=== PATIENT | male | born 1995 | race Caucasian/White ===

== ENCOUNTER 2021-06-17 11:57 | Inpatient (IN) ==
[2021-06-17] MEDS ORDERED: diphenhydrAMINE 50 MG/ML VIAL IV STA (12:08)
[2021-06-17] MEDS ORDERED: ACETAMINOPHEN 1,000 MG/100 ML VIAL IV STA (12:08)
[2021-06-17] MEDS ORDERED: SODIUM CHLORIDE 0.9% 1000ML 2,000 ML IV ONE (12:08)
[2021-06-17 12:37] LABS: Eosinophils # (auto) 0.82 K/uL (0-0.5); Eosinophils % (auto) 10.9 %; Hemoglobin 15.3 g/dL (14.0-18.0); Immature Granulocytes # (auto) 0.02 K/uL (0.00-0.02); Immature Granulocytes % (auto) 0.3 %; Lymphocytes # (auto) 0.67 K/uL (1.2-3.4); Lymphocytes % (auto) 8.9 %; Mean Corpuscular Hemoglobin 29.9 pg (25-34); Mean Corpuscular Hgb Conc 35.6 g/dL (32-36); Mean Corpuscular Volume 84.1 fL (80-100); Mean Platelet Volume 12.1 fL (7.4-10.4); Monocytes # (auto) 0.26 K/uL (0.11-0.59); Monocytes % (auto) 3.5 %; Neutrophils # (auto) 5.76 K/uL (1.4-6.5); Neutrophils % (auto) 76.4 %; Platelet Count 137 K/uL (130-400); RDW Coefficient of Variation 13.5 % (11.5-14.5); RDW Standard Deviation 41.2 fL (36.4-46.3); Red Blood Count 5.11 M/uL (4.7-6.1); White Blood Count 7.53 K/uL (4.8-10.8)
[2021-06-17] MEDS ORDERED: ONDANSETRON INJ 2 MG/ML 2 ML VIAL IV STA (12:55)
[2021-06-17 12:56] LABS: INR 1.1 (0.9-1.1); Prothrombin Time 11.2 Seconds (9.0-12.0)
--- NOTE | 2021-06-17 13:00 | XRay Report ---
XR chest 1V portable CLINICAL HISTORY: SEPSIS TECHNIQUE: Single frontal radiograph of the chest was obtained. Comparison: None available at the time of this dictation. FINDINGS: No lines and tubes are seen. The cardiomediastinal silhouette is normal. The lungs are clear. No evid ence of pleural effusion or pneumothorax. IMPRESSION: No acute chest disease. ACT 112: Negative or not required by law. Electronically signed by: Darryl Figueroa M.D. 06/17/2021 12:59 PM
[2021-06-17 13:09] LABS: Troponin I < 0.03 ng/ml (0-0.04)
[2021-06-17 13:21] LABS: Alanine Aminotransferase 33 U/L (7-52); Albumin Globulin Ratio 1.4 (0.9-2); Albumin Level 4.5 gm/dl (3.4-5.0); Alkaline Phosphatase 40 U/L (34-104); Anion Gap 7 (3-11); Aspartate Aminotransferase 18 U/L (13-39); Blood Urea Nitrogen 11 mg/dl (6-23); C Reactive Protein 4.89 mg/dl (0-0.5); Calcium 8.9 mg/dl (8.5-10.1); Carbon Dioxide 28 mmol/L (21-32); Chloride 99 mmol/L (98-107); Creatinine Clr Calc Pharmacy 88.2 ml/min; Est GFR (African American) 81.2 ml/min; Est GFR (Non-African American) 70.1 ml/min; Globulin 3.2 gm/dl (2.5-4.0); Glucose 93 mg/dl (70-99(Fasting)); Magnesium 1.7 mg/dl (1.7-2.4); Potassium 3.4 mmol/L (3.5-5.1); Sodium 134 mmol/L (136-145); Total Protein 7.7 gm/dl (6.0-8.3)
[2021-06-17] MEDS ORDERED: SODIUM CHLORIDE 0.9% 1000ML 1,000 ML IV ONE (13:57)
[2021-06-17 14:07] LABS: Adenovirus PCR Not Detected (NotDetected); Bordetella parapertussis PCR Not Detected (NotDetected); Bordetella pertussis PCR Not Detected (NotDetected); Chlamydia pneumoniae PCR Not Detected (NotDetected); Coronavirus 229E PCR Not Detected (NotDetected); Coronavirus CoV-2 (COVID19)PCR Not Detected (NotDetected); Coronavirus HKU1 PCR Not Detected (NotDetected); Coronavirus NL63 PCR Not Detected (NotDetected); Coronavirus OC43PCR Not Detected (NotDetected); Human Metapneumovirus PCR Not Detected (NotDetected); Influenza A PCR Not Detected (NotDetected); Influenza B PCR Not Detected (NotDetected); Mycoplasma pneumoniae PCR Not Detected (NotDetected); Parainfluenza Virus 1 PCR Not Detected (NotDetected); Parainfluenza Virus 2 PCR Not Detected (NotDetected); Parainfluenza Virus 3 PCR Not Detected (NotDetected); Parainfluenza Virus 4 PCR Not Detected (NotDetected); Respiratory Syncytial VirusPCR Not Detected (NotDetected); Rhinovirus/Enterovirus PCR Not Detected (NotDetected)
--- NOTE | 2021-06-17 14:46 | History & Physical Report ---
Date of Service June 17, 2021 Assessment & Plan (1) Fever: (2) Rash: Plan: Meets SIRS criteria, unknown source DDX: Tick borne illness - anaplasmosis, ehrlichiosis. Juan Jorge Syndrome Patient is 26-year-old male with PMH eosinophilic esophagitis, migraine headache presented to ER referred from dermatology clinic today for rash x 3 days and and fever x 2 days. TMax: 104F Today in ER T: 40.2C, P: 127, R 20, BP 135/78, 98% on room air. No leukocytosis, H&H and platelets WNL. Procalcitonin, lactate WNL. CRP: 4.8, ESR: 13. UA negative. CXR: Negative. Negative respiratory panel In ER given 2 L NSS, IV Benadryl IV Tylenol, IV Zofran Blood cultures pending RPR pending, HIV pending Babesia and ehrlichiosis PCR pending from 06/16/2021 06/16/21. negative mono screen, negative Lyme AB, negative Anaplasma smea 06/17/2021 Outpatient [facility] dermatology and had skin biopsy. Dermatology DDX: ehrlichiosis, mycoplasma pneumonia with Larson-Jorge syndrome, anaplasmosis, versus other etiologies. In clinic he was given doxycycline 200 mg orally. Discontinue Keflex and prednisone that was prescribed 06/15/21 for rash Doxycycline BID IVF Benadryl prn ID consult Will need to follow outpatient skin biopsy results CBC, BMP in am If patient would develop worsening skin rash, necrolysis consider transfer to tertiary center (3) Migraine: Plan: History migraine OBANDO No current OBANDO DVT Prophylaxis SCDs Full Code Follows with Dr Jordon Quach for routine care Pt was seen and care coordinated with Dr Reeves. See addendum History of Present Illness Chief Complaint: Rash, Fever Primary Care Provider: Dr Quach Patient is 26-year-old male with PMH eosinophilic esophagitis, migraine headache presented to ER referred from dermatology clinic today for rash and fever. Patient reports symptoms started on 06/14/2021, initially noticing 2 bumps to right lower calf. He reports progressed to pruritic red rash all over his body. He was seen at [facility] ER on 06/15/2021 for rash and was started on Keflex and prednisone. Patient reports had worsening rash and developed fever of 101F, felt like has facial swelling, generalized headache and reports SOB and returned to ER on 06/16/21. During that ER visit he had no leukocytosis on labs, had negative mono screen, negative Lyme AB, negative Anaplasma smear, and has ehrlichiosis and Babesia PCR is pending. Patient states today 06/17/2021 was seen by dermatology-Dr. Galarza. He was found to have fever there and had biopsy of skin lesion to left arm and abdomen and was referred to ER for further work-up. Dermatology thought possible differential diagnosis of ehrlichiosis, mycoplasma pneumonia with Larson-Jorge syndrome, anaplasmosis, versus etiologies. In clinic he was given doxycycline 200 mg orally. Patient denies recent travel, ill contacts. Reports did go fishing 4 to 5 days ago. Is unaware of any known tick or insect bites. He reports 5 days ago purchased a car from a friend who had a dog, and patient reports he has allergies to dogs. Denies any other new environmental exposures. Denies any new foods. Denies any other medications. Denies recent antibiotic use prior to what was prescribed to him on 06/15/2021. Reports female partner is his . Denies any other sexual partners. Denies history of STDs. Denies N/V/D/C, dizziness, syncope, vision changes, neck pain, CP, orthopnea, palpitations, cough, sore throat, choking, otalgia, rhinorrhea, abdominal pain, paresthesias, weakness, extremity weakness, extremity edema, urinary symptoms. History COVID-19 03/17/2021. Allergies Allergy/AdvReac Type Severity Reaction Status Date / Time azithromycin Allergy Unknown Verified 06/17/21 12:57 Home Medications Medication Instructions Recorded Confirmed Type cephalexin 500 mg capsule 500 mg PO TID 10 Days #30 cap 06/15/21 06/17/21 Rx prednisone 20 mg tablet 40 mg PO DAILY #14 tab 06/15/21 06/17/21 Rx rizatriptan 10 mg disintegrating 10 mg PO UD PRN 06/17/21 06/17/21 History tablet Past Med/Surg History Medical History (Updated 06/17/21 @ 18:38 by Katarina Arvizu PA-C) Eosinophilic esophagitis Migraine Rash Surgical History (Updated 06/17/21 @ 18:38 by Katarina Arvizu PA-C) History of tonsillectomy and adenoidectomy Family History (Updated 06/17/21 @ 18:39 by Katarina Arvizu PA-C) Brother Cancer Osteosarcoma Social History Smoking Status: Never smoker Hx Alcohol Use: Yes Hx Substance Use: No Preferred Language: [place] Communication Ability: Effective 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 Beliefs That Will Affect Care: None Current Living Situation: Spouse Feels Safe at Home: Yes Assistive Devices: None Review of Systems Review of Systems: All systems reviewed & are unremarkable except as noted in HPI & below Physical Exam Physical Exam: General: appears uncomfortable, overweight Head: normocephalic, atraumatic Eyes: PERRL, EOM's intact, conjunctiva slightly injected, no discharge, anicteric ENT: external ears erythematous, swollen, normal external nose, mucous membranes moist, +lesions on palate and inferior aspect of tongue Neck: supple, trachea midline, non-tender, +cervical lymphadenopathy Lungs: clear, no respiratory distress, no wheezing/rhonchi/rales CV: tachycardia, rate 108, regular rhythm, no murmur, no pretibial edema Abd: normal BS, soft, non-tender Ext: no cyanosis, no calf tenderness Neuro: A&O x 3, no focal deficits noted, normal affect Skin: warm, dry, + erythematous papules, plaques to face neck, back, chest, abdomen, bilateral upper and lower extremities, genitals. macules noted to bilat eral palms Results & Data Results & Data ([facility]) Vital Signs (Past 12 Hours) Vital Signs Temp Pulse Resp BP Pulse Ox 06/17/21 14:30 101 H 11 L 113/57 L 97 06/17/21 14:00 99 H 20 119/57 L 96 06/17/21 13:30 102 H 20 125/66 96 06/17/21 13:00 111 H 20 97 06/17/21 12:38 20 98 06/17/21 12:30 113 H 18 06/17/21 12:21 127 H 20 98 06/17/21 12:05 40.2 C H 127 H 20 135/78 98 Laboratory Results Short CBC 06/17/21 Range/Units 12:25 WBC 7.53 (4.8-10.8) K/uL Hgb 15.3 (14.0-18.0) g/dL Hct 43.0 (42-52) % Plt Count 137 (130-400) K/uL BMP 06/17/21 12:25 Sodium 134 L Potassium 3.4 L Chloride 99 Carbon Dioxide 28 BUN 11 Creatinine 1.38 D Glucose 93 Calcium 8.9 Cardiac Enzymes 06/17/21 Range/Units 12:25 Troponin I < 0.03 (0-0.04) ng/ml Liver Function 06/17/21 Range/Units 12:25 Total Bilirubin 1.0 (0.2-1.0) mg/dl AST 18 (13-39) U/L ALT 33 (7-52) U/L Alkaline Phosphatase 40 (34-104) U/L Albumin 4.5 (3.4-5.0) gm/dl Urine 06/17/21 Range/Units Unknown Urine Color Yellow Urine Appearance Clear (Clear) Urine pH 6.0 (4.5-7.5) Ur Specific [place] 1.013 (1.000-1.030) Urine Protein Negative (Negative) Urine Glucose (UA) Negative (Negative) Diagnostic Findings Chest X-Ray 06/17/21 12:08 XR chest 1V portable CLINICAL HISTORY: SEPSIS TECHNIQUE: Single frontal radiograph of the chest was obtained. Comparison: None available at the time of this dictation. FINDINGS: No lines and tubes are seen. The cardiomediastinal silhouette is normal. The lungs are clear. No evidence of pleural effusion or pneumothorax. IMPRESSION: No acute chest disease. ACT 112: Negative or not required by law. Electronically signed by: Darryl Figueroa M.D. 06/17/2021 12:59 PM Supervising Physician Co-Signing Physician Notes Patient was seen and evaluted independently. Chart was reviewed. Case discussed with REJI. Agree with assessment and plan as above
--- NOTE | 2021-06-17 15:18 | Emergency Department Note ---
History of Present Illness General Chief complaint: Referred by Doctor Stated complaint: RASH GETTING WORSE, DERMATOLOGY CALLED Time Seen by Provider: 06/17/21 12:08 History of Present Illness Provider complaint: Fever and rash Onset (ago): day(s) 3 Location: back, abdomen, upper extremity and lower extremity Radiation: non-radiation Maximum Pain Intensity: 10 Associated symptoms: + fever/chills, + headaches, + nausea/vomiting (nausea no vomitting) and + rash; no confusion, no cough, no diaphoresis, no seizure or no shortness of breath 26-year-old male presents emergency department for rash and fever. Patient came asking dermatology. Patient reports rash has been present for last 3 days. This is the third visit to the emergency department last 3 days. Reports rash gets better with Benadryl but is still spreading and itching. Patient is now reporting headache and nausea. No vomiting. Home Medications Medication Instructions Recorded Confirmed Type cephalexin 500 mg capsule 500 mg PO TID 10 Days #30 cap 06/15/21 06/17/21 Rx prednisone 20 mg tablet 40 mg PO DAILY #14 tab 06/15/21 06/17/21 Rx rizatriptan 10 mg disintegrating 10 mg PO UD PRN 06/17/21 06/17/21 History tablet Allergies Allergy/AdvReac Type Severity Reaction Status Date / Time azithromycin Allergy Unknown Verified 06/17/21 12:57 Past Med/Surg History Medical History Eosinophilic esophagitis Migraine No pertinent family history No pertinent past medical history Rash Surgical History No pertinent past surgical history Social History Smoking Status: Never smoker Preferred Language: Tanzanian Feels Safe at Home: Yes Review of Systems A total of 10 systems reviewed and were otherwise negative Physical Exam Vital Signs Vital Signs - 24 hr 06/17/21 12:05 06/17/21 12:21 06/17/21 12:30 Temperature 40.2 C H Temperature Source Temporal Artery Scan Pulse Rate 127 H 127 H 113 H Pulse Rate from SpO2 Sensor Pulse Rhythm Regular Respiratory Rate 20 20 18 Respiratory Effort / Characteristics Non-Labored Spontaneous Respiratory Depth Normal Respiratory Pattern Regular Blood Pressure 135/78 Blood Pressure Mean 97 Pulse Oximetry 98 98 Oxygen Delivery Method Room Air Room Air Sepsis Recent Fever Within 48 Hours Yes Sepsis New/Unexplained Change in Mental Status No Sepsis Action Taken by Nursing Physician Notified 06/17/21 12:38 06/17/21 13:00 06/17/21 13:30 Temperature Temperature Source Pulse Rate 111 H 102 H Pulse Rate from SpO2 Sensor 112 H 103 H Pulse Rhythm Respiratory Rate 20 20 20 Respiratory Effort / Characteristics Non-Labored Spontaneous Respiratory Depth Respiratory Pattern Blood Pressure 125/66 Blood Pressure Mean 85 Pulse Oximetry 98 97 96 Oxygen Delivery Method Room Air Sepsis Recent Fever Within 48 Hours Sepsis New/Unexplained Change in Mental Status Sepsis Action Taken by Nursing 06/17/21 14:00 06/17/21 14:30 06/17/21 15:00 Temperature Temperature Source Pulse Rate 99 H 101 H 99 H Pulse Rate from SpO2 Sensor 99 H 101 H 99 H Pulse Rhythm Respiratory Rate 20 11 L 18 Respiratory Effort / Characteristics Respiratory Depth Respiratory Pattern Blood Pressure 119/57 L 113/57 L 136/60 Blood Pressure Mean 77 75 85 Pulse Oximetry 96 97 96 Oxygen Delivery Method Sepsis Recent Fever Within 48 Hours Sepsis New/Unexplained Change in Mental Status Sepsis Action Taken by Nursing Physical Exam GENERAL: He is oriented to person, place, and time. He appears well-developed and well-nourished. He does not appear distressed. HENT: Exam performed. - Head: Normocephalic and atraumatic. Face covered in calamine lotion. - Right Ear: External ear normal. No mastoid tenderness. - Left Ear: External ear normal. No mastoid tenderness. - Mouth/Throat: The oropharynx is clear and moist. No trismus in the jaw. No dental abscesses or uvula swelling. No oropharyngeal exudate or tonsillar abscesses. EYES: Conjunctivae and EOM are normal. Pupils are equal, round, and reactive to light. Right eye exhibits no discharge. Left eye exhibits no discharge. No scleral icterus. NECK: Normal range of motion. Neck supple. No JVD present. No spinous process tenderness present. No carotid bruit present. No rigidity. No tracheal deviation and normal range of motion present. No Brudzinski's sign and no Kernig's sign noted. CV: Tachycardic rate, regular rhythm, normal heart sounds and intact distal pulses. There is no peripheral edema. Palpable radial pulses bue. PULM/CHEST: Effort normal and breath sounds normal. No respiratory distress. No stridor. He has no wheezes. He has no rales. - Chest Wall: He exhibits no tenderness. ABD: The abdomen is soft. Bowel sounds are normal. He has no distension. No mass is present. There is no tenderness. There is no rebound, no guarding, no Shaikh's sign and no tenderness at McBurney's point. Rovsig negative. MUSC/SKEL: Normal range of motion. There is no peripheral edema, tenderness or deformity. LYMPH: No cervical adenopathy. NEURO: He is alert and oriented to person, place, and time. He has normal strength. No cranial nerve deficit or sensory deficit. Coordination and gait normal. GCS eye subscore is 4. GCS verbal subscore is 5. GCS motor subscore is 6. Cerebellar tests wnl. SKIN: Macular rash over the patient's bilateral upper extremities, lower extremities, trunk, back, and face. No rash on the palms or soles. Rash is no over his genitalia also. No intraoral lesions. No vesicular lesions. Mild surrounding erythema. No discharge or purulence. PSYCH: He has a normal mood and affect. Behavior is normal. Judgment and thought content normal. Course Course 1208: The patient was evaluated in room B4. A complete history and physical exam was performed Cardiac monitoring: An order was placed for continuous cardiac monitoring. The monitor shows a rate of 130 with sinus tachycardia rhythm Administered Medications Discontinued Medications Diphenhydramine HCl (Diphenhydramine 50 Mg/Ml Vial) 25 mg IV NOW STA Stop: 06/17/21 12:09 Last Admin: 06/17/21 12:30 Dose: 25 mg Documented by: [id number] Sodium Chloride (Nss 1000ml) 2,000 mls @ 999 mls/hr IV .Q2H1M ONE Stop: 06/17/21 14:08 Last Infusion: 06/17/21 14:12 Dose: 0 mls/hr Documented by: [id number] Admin: 06/17/21 12:29 Dose: 999 mls/hr Documented by: [id number] Acetaminophen (Ofirmev) 1,000 mg in 100 mls @ 400 mls/hr IV NOW STA Stop: 06/17/21 12:22 Last Infusion: 06/17/21 12:51 Dose: 0 mls/hr Documented by: [id number] Admin: 06/17/21 12:30 Dose: 400 mls/hr Documented by: [id number] Sodium Chloride (Nss 1000ml) 1,000 mls @ 999 mls/hr IV .Q1H1M ONE Stop: 06/17/21 14:57 Last Admin: 06/17/21 14:12 Dose: 999 mls/hr Documented by: [id number] Ondansetron HCl (Ondansetron Inj 2 Mg/Ml 2 Ml Vial) 4 mg IV NOW STA Stop: 06/17/21 12:56 Last Admin: 06/17/21 13:05 Dose: 4 mg Documented by: [id number] Medical Decision Making Laboratory Data Result diagrams: 06/17/21 12:25 06/17/21 12:25 Lab Results 06/17/21 06/17/21 06/17/21 Range/Units 12:25 12:25 12:25 WBC 7.53 (4.8-10.8) K/uL RBC 5.11 (4.7-6.1) M/uL Hgb 15.3 (14.0-18.0) g/dL Hct 43.0 (42-52) % MCV 84.1 (80-100) fL MCH 29.9 (25-34) pg MCHC 35.6 (32-36) g/dL RDW Std Deviation 41.2 (36.4-46.3) fL RDW Coeff of Isidra 13.5 (11.5-14.5) % Plt Count 137 (130-400) K/uL MPV 12.1 H (7.4-10.4) fL Immature Gran % (Auto) 0.3 % Neut % (Auto) 76.4 % Lymph % (Auto) 8.9 % [place] % (Auto) 3.5 % Eos % (Auto) 10.9 % Baso % (Auto) 0.0 % Neut # (Auto) 5.76 (1.4-6.5) K/uL Lymph # (Auto) 0.67 L (1.2-3.4) K/uL [place] # (Auto) 0.26 (0.11-0.59) K/uL Eos # (Auto) 0.82 H (0-0.5) K/uL Baso # (Auto) 0.00 (0-0.2) K/uL Immature Gran # (Auto) 0.02 (0.00-0.02) K/uL ESR 13 (0-15) mm/hr PT 11.2 (9.0-12.0) Seconds INR 1.1 (0.9-1.1) APTT 27.0 (21.0-31.0) Seconds PTT Ratio 1.0 Sodium (136-145) mmol/L Potassium (3.5-5.1) mmol/L Chloride (98-107) mmol/L Carbon Dioxide (21-32) mmol/L Anion Gap (3-11) BUN (6-23) mg/dl Creatinine (0.6-1.4) mg/dl Est Cr Clr Drug Dosing ml/min Est GFR ( Amer) ml/min Est GFR (Non-Af Amer) ml/min BUN/Creatinine Ratio (10-20) Glucose (70-99(Fasting)) mg/dl Lactate (0.4-2.0) mmol/L Calcium (8.5-10.1) mg/dl Magnesium (1.7-2.4) mg/dl Total Bilirubin (0.2-1.0) mg/dl AST (13-39) U/L ALT (7-52) U/L Alkaline Phosphatase (34-104) U/L Troponin I (0-0.04) ng/ml C-Reactive Protein (0-0.5) mg/dl Total Protein (6.0-8.3) gm/dl Albumin (3.4-5.0) gm/dl Globulin (2.5-4.0) gm/dl Albumin/Globulin Ratio (0.9-2) Procalcitonin (0-0.5) ng/ml Adenovirus (PCR) (NotDetected) B. pertussis DNA (PCR) (NotDetected) B.parapertussis DNA PCR (NotDetected) C. pneumoniae DNA (PCR) (NotDetected) Coronavirus OC43 (PCR) (NotDetected) Coronavirus HKU1 (PCR) (NotDetected) Coronavirus 229E (PCR) (NotDetected) SARS-CoV-2 (PCR) (NotDetected) Coronavirus NL63 (PCR) (NotDetected) Human Metapneumovir PCR (NotDetected) Influenza Type A (PCR) (NotDetected) Influenza Type B (PCR) (NotDetected) M. pneumoniae (PCR) (NotDetected) Parainfluenza 1 (PCR) (NotDetected) Parainfluenza 2 (PCR) (NotDetected) Parainfluenza 3 (PCR) (NotDetected) Parainfluenza 4 (PCR) (NotDetected) RSV (PCR) (NotDetected) Entero/Rhino (PCR) (NotDetected) 06/17/21 06/17/21 06/17/21 Range/Units 12:25 12:25 12:25 WBC (4.8-10.8) K/uL RBC (4.7-6.1) M/uL Hgb (14.0-18.0) g/dL Hct (42-52) % MCV (80-100) fL MCH (25-34) pg MCHC (32-36) g/dL RDW Std Deviation (36.4-46.3) fL RDW Coeff of Isidra (11.5-14.5) % Plt Count (130-400) K/uL MPV (7.4-10.4) fL Immature Gran % (Auto) % Neut % (Auto) % Lymph % (Auto) % [place] % (Auto) % Eos % (Auto) % Baso % (Auto) % Neut # (Auto) (1.4-6.5) K/uL Lymph # (Auto) (1.2-3.4) K/uL [place] # (Auto) (0.11-0.59) K/uL Eos # (Auto) (0-0.5) K/uL Baso # (Auto) (0-0.2) K/uL Immature Gran # (Auto) (0.00-0.02) K/uL ESR (0-15) mm/hr PT (9.0-12.0) Seconds INR (0.9-1.1) APTT (21.0-31.0) Seconds PTT Ratio Sodium 134 L (136-145) mmol/L Potassium 3.4 L (3.5-5.1) mmol/L Chloride 99 (98-107) mmol/L Carbon Dioxide 28 (21-32) mmol/L Anion Gap 7 (3-11) BUN 11 (6-23) mg/dl Creatinine 1.38 D (0.6-1.4) mg/dl Est Cr Clr Drug Dosing 88.2 ml/min Est GFR ( Amer) 81.2 ml/min Est GFR (Non-Af Amer) 70.1 ml/min BUN/Creatinine Ratio 8.0 L (10-20) Glucose 93 (70-99(Fasting)) mg/dl Lactate 1.0 (0.4-2.0) mmol/L Calcium 8.9 (8.5-10.1) mg/dl Magnesium 1.7 (1.7-2.4) mg/dl Total Bilirubin 1.0 (0.2-1.0) mg/dl AST 18 (13-39) U/L ALT 33 (7-52) U/L Alkaline Phosphatase 40 (34-104) U/L Troponin I < 0.03 (0-0.04) ng/ml C-Reactive Protein 4.89 H (0-0.5) mg/dl Total Protein 7.7 (6.0-8.3) gm/dl Albumin 4.5 (3.4-5.0) gm/dl Globulin 3.2 (2.5-4.0) gm/dl Albumin/Globulin Ratio 1.4 (0.9-2) Procalcitonin 0.10 (0-0.5) ng/ml Adenovirus (PCR) (NotDetected) B. pertussis DNA (PCR) (NotDetected) B.parapertussis DNA PCR (NotDetected) C. pneumoniae DNA (PCR) (NotDetected) Coronavirus OC43 (PCR) (NotDetected) Coronavirus HKU1 (PCR) (NotDetected) Coronavirus 229E (PCR) (NotDetected) SARS-CoV-2 (PCR) (NotDetected) Coronavirus NL63 (PCR) (NotDetected) Human Metapneumovir PCR (NotDetected) Influenza Type A (PCR) (NotDetected) Influenza Type B (PCR) (NotDetected) M. pneumoniae (PCR) (NotDetected) Parainfluenza 1 (PCR) (NotDetected) Parainfluenza 2 (PCR) (NotDetected) Parainfluenza 3 (PCR) (NotDetected) Parainfluenza 4 (PCR) (NotDetected) RSV (PCR) (NotDetected) Entero/Rhino (PCR) (NotDetected) 06/17/21 Range/Units 13:08 WBC (4.8-10.8) K/uL RBC (4.7-6.1) M/uL Hgb (14.0-18.0) g/dL Hct (42-52) % MCV (80-100) fL MCH (25-34) pg MCHC (32-36) g/dL RDW Std Deviation (36.4-46.3) fL RDW Coeff of Isidra (11.5-14.5) % Plt Count (130-400) K/uL MPV (7.4-10.4) fL Immature Gran % (Auto) % Neut % (Auto) % Lymph % (Auto) % [place] % (Auto) % Eos % (Auto) % Baso % (Auto) % Neut # (Auto) (1.4-6.5) K/uL Lymph # (Auto) (1.2-3.4) K/uL [place] # (Auto) (0.11-0.59) K/uL Eos # (Auto) (0-0.5) K/uL Baso # (Auto) (0-0.2) K/uL Immature Gran # (Auto) (0.00-0.02) K/uL ESR (0-15) mm/hr PT (9.0-12.0) Seconds INR (0.9-1.1) APTT (21.0-31.0) Seconds PTT Ratio Sodium (136-145) mmol/L Potassium (3.5-5.1) mmol/L Chloride (98-107) mmol/L Carbon Dioxide (21-32) mmol/L Anion Gap (3-11) BUN (6-23) mg/dl Creatinine (0.6-1.4) mg/dl Est Cr Clr Drug Dosing ml/min Est GFR ( Amer) ml/min Est GFR (Non-Af Amer) ml/min BUN/Creatinine Ratio (10-20) Glucose (70-99(Fasting)) mg/dl Lactate (0.4-2.0) mmol/L Calcium (8.5-10.1) mg/dl Magnesium (1.7-2.4) mg/dl Total Bilirubin (0.2-1.0) mg/dl AST (13-39) U/L ALT (7-52) U/L Alkaline Phosphatase (34-104) U/L Troponin I (0-0.04) ng/ml C-Reactive Protein (0-0.5) mg/dl Total Protein (6.0-8.3) gm/dl Albumin (3.4-5.0) gm/dl Globulin (2.5-4.0) gm/dl Albumin/Globulin Ratio (0.9-2) Procalcitonin (0-0.5) ng/ml Adenovirus (PCR) Not Detected (NotDetected) B. pertussis DNA (PCR) Not Detected (NotDetected) B.parapertussis DNA PCR Not Detected (NotDetected) C. pneumoniae DNA (PCR) Not Detected (NotDetected) Coronavirus OC43 (PCR) Not Detected (NotDetected) Coronavirus HKU1 (PCR) Not Detected (NotDetected) Coronavirus 229E (PCR) Not Detected (NotDetected) SARS-CoV-2 (PCR) Not Detected (NotDetected) Coronavirus NL63 (PCR) Not Detected (NotDetected) Human Metapneumovir PCR Not Detected (NotDetected) Influenza Type A (PCR) Not Detected (NotDetected) Influenza Type B (PCR) Not Detected (NotDetected) M. pneumoniae (PCR) Not Detected (NotDetected) Parainfluenza 1 (PCR) Not Detected (NotDetected) Parainfluenza 2 (PCR) Not Detected (NotDetected) Parainfluenza 3 (PCR) Not Detected (NotDetected) Parainfluenza 4 (PCR) Not Detected (NotDetected) RSV (PCR) Not Detected (NotDetected) Entero/Rhino (PCR) Not Detected (NotDetected) Imaging Data Radiologist's Impression: Chest X-Ray 06/17/21 12:08 XR chest 1V portable CLINICAL HISTORY: SEPSIS TECHNIQUE: Single frontal radiograph of the chest was obtained. Comparison: None available at the time of this dictation. FINDINGS: No lines and tubes are seen. The cardiomediastinal silhouette is normal. The lungs are clear. No evidence of pleural effusion or pneumothorax. IMPRESSION: No acute chest disease. ACT 112: Negative or not required by law. Electronically signed by: Darryl Figueroa M.D. 06/17/2021 12:59 PM ECG Data Indication: + tachycardia Rate (beats per minute): 110 Rhythm: + sinus tachycardia ECG Intervals/blocks: + Normal QRS, + Normal RI and + Normal QT-c ECG ST segments: + Normal ST segments MDM Narrative EMR reviewed. This is the patient's third visit to the emergency department last 3 days. Patient arrives febrile and tachycardic. Sepsis protocols were initiated. Patient was seen in the emergency department yesterday and had an essentially negative work-up with normal blood work with exception of a mild elevation of the patient's bilirubin level at 1.3 with direct bilirubin of 0.3. Lyme mono and Covid were negative. The patient's rash did seem to improve with Benadryl in the emergency department yesterday. The grandfather at bedside stated that they saw Dr. Mike Livingston dermatology. I did speak and call Dr. Galarza at her office. She states that the patient most likely has alkalosis given his history of recent outdoor fishing and a high tick burden in the area. She states she did treat him with doxycycline 200 mg prior to arrival in the emergency department. Dr. Galarza also stated other things on her differential included mycoplasma pneumonia with very early Larson-Jorge syndrome and or anaplasmosis. She did state that the patient most likely needs to be hospitalized. She states that this potentially early Larson-Jorge is not n eed to be transferred to a burn center at this time based off her assessment in the office Labs today in the emergency department were essentially normal with the exception of an elevated CRP of 4.89. ESR was within normal limits. White blood cell count was within normal limits. Bilirubin level normalized. Lactic acid level normal. Procalcitonin level. X-rays negative. Respiratory bio fire was conducted and the patient was negative for all respiratory illnesses on the bio fire including mycoplasma pneumonia. It is not thought that the patient is having any Larson-Jorge syndrome as he has no triggers for it and there is no sloughing of skin. Patient's vitals improved with antipyretics IV fluids and IV Benadryl. Discussed with [facility] hospitalist [place] who stated to admit to Dr. Reeves. Impression & Plan Rash, SIRS (systemic inflammatory response syndrome) Discharge Plan Visit Data Chief Complaint: Referred by Doctor Stated Complaint: RASH GETTING WORSE, DERMATOLOGY CALLED ED Provider: Jonatan Marino Discharge Problem: Rash, SIRS (systemic inflammatory response syndrome) Patient Disposition: Admitted As Inpatient Forms Stand Alone Forms: [facility] Prescriptions Prescriptions: No Action prednisone 20 mg tablet 40 mg PO DAILY Qty: 14 RF: 0 cephalexin 500 mg capsule 500 mg PO TID 10 Days Qty: 30 RF: 0 rizatriptan 10 mg tablet,disintegrating 10 mg PO UD PRN (Reason: Headache) RF: 0 Referrals Referrals: PCP,NO [Primary Care Provider] -
[2021-06-17] MEDS ORDERED: POLYETHYLENE (MIRALAX) 17 GM PACK PO PRN (17:15)
[2021-06-17] MEDS: diphenhydrAMINE Capsule 25 MG CAP PO PRN (17:29)
[2021-06-17] MEDS: ACETAMINOPHEN 325 MG TAB PO PRN ×2 (17:29→21:42)
[2021-06-17 17:31] LABS: Appearance Urine Clear (Clear); Bilirubin Urine Negative (Negative); Blood Urine Negative (Negative); Color Urine Yellow; Glucose Urine UA Negative (Negative); Ketones Urine Negative (Negative); Leukocyte Esterase Urine Negative (Negative); Nitrite Urine Negative (Negative); Protein Urine Negative (Negative); Specific Gravity Urine 1.013 (1.000-1.030); Urobilinogen Urine Negative (Negative)
[2021-06-17] MEDS ORDERED: SODIUM CHLORIDE 0.9% 1000ML 250 ML IV ONE (18:47)
[2021-06-17] MEDS ORDERED: SODIUM CHLORIDE 0.9% 500 ML IV SCH (19:00)
[2021-06-17] MEDS: IBUPROFEN 600 MG TAB PO PRN (19:04)
[2021-06-17] MEDS ORDERED: SODIUM CHLORIDE 0.9% 1000ML 1,000 ML IV SCH (19:45)
[2021-06-17] MEDS: DOXYCYCLINE HYCLATE 100 MG CAP PO SCH (20:24)
[2021-06-17] MEDS ORDERED: LACTATED RINGER'S 1,000 ML IV ONE (23:28)
[2021-06-18 00:38] LABS: Rapid Plasma Reagin Nonreactive (Nonreactive)
[2021-06-18] MEDS: SODIUM CHLORIDE 0.9% 1000ML 1,000 ML IV SCH ×3 (01:41→18:15)
--- NOTE | 2021-06-18 07:12 | Electrocardiogram Report ---
Test Reason : Blood Pressure : / mmHG Vent. Rate : 114 BPM Atrial Rate : 114 BPM P-R Int : 144 ms QRS Dur : 092 ms QT Int : 296 ms P-R-T Axes : 017 -04 047 degrees QTc Int : 407 ms Sinus tachycardia Otherwise normal ECG No previous ECGs available Confirmed by Donavan Antoine ([id number]) on 06/18/2021 7:12:06 AM Referred By: REFERRED SELF Confirmed By:Donavan Antoine
[2021-06-18 07:47] LABS: Albumin Level 3.5 gm/dl (3.4-5.0); BUN Creatinine Ratio 8.2 (10-20); Bilirubin Direct 0.2 mg/dl (0-0.2); Bilirubin,Total 0.9 mg/dl (0.2-1.0); Calcium 7.8 mg/dl (8.5-10.1); Creatinine Clr Calc Pharmacy 110.6 ml/min; Est GFR (African American) 106.8 ml/min; Est GFR (Non-African American) 92.2 ml/min; Potassium 3.7 mmol/L (3.5-5.1); Total Protein 5.9 gm/dl (6.0-8.3)
[2021-06-18 08:00] LABS: Hematocrit (blood only) 39.2 % (42-52); Hemoglobin 13.9 g/dL (14.0-18.0); Mean Corpuscular Hemoglobin 29.6 pg (25-34); Mean Corpuscular Hgb Conc 35.5 g/dL (32-36); Mean Corpuscular Volume 83.6 fL (80-100); Mean Platelet Volume 12.2 fL (7.4-10.4); Platelet Count 118 K/uL (130-400); Platelet Estimate Decreased (Normal); RDW Coefficient of Variation 13.8 % (11.5-14.5); RDW Standard Deviation 41.8 fL (36.4-46.3); Red Blood Count 4.69 M/uL (4.7-6.1); White Blood Count 6.53 K/uL (4.8-10.8)
[2021-06-18] MEDS: ACETAMINOPHEN 325 MG TAB PO PRN ×3 (08:02→23:17)
[2021-06-18] MEDS: DOXYCYCLINE HYCLATE 100 MG CAP PO SCH ×2 (08:02→21:56)
[2021-06-18] MEDS: diphenhydrAMINE Capsule 25 MG CAP PO PRN ×2 (08:06→21:56)
[2021-06-18] MEDS: IBUPROFEN 600 MG TAB PO PRN ×2 (12:24→21:56)
--- NOTE | 2021-06-18 17:49 | Rheumatology Consultation ---
Rheumatology Consultation DOS June 18, [address] Reeves Attending Physician Dr Reeves Reason for Consultation fever, rash Assessment & Plan (1) SIRS (systemic inflammatory response syndrome): I would really favor some type of inflammatory reactive process and likely to a viral illness especially given 2 sick children at home (son started same day and now daughter today with a rash). I doubt autoimmune diagnosis, vasculitis (vivi given biopsy result). doubt MIS-A given timing to diagnosis of COVID but do wonder if his previous COVID diagnosis predisposed him to this viral/infectious reaction (2) Fever: (3) Interface dermatitis: see above await ID input consider prednisone after ID input will update dermatology - done after evaluation no further rheum follow up needed at this point History of Present Illness Reason for Consultation: Fever, rash Requesting Physician: Dr Reeves Attending Physician: Hector Reeves MD History of Present Illness Brandyn is a 26 y/o male who is here for ongoing fevers and diffuse body rash. he is an over all healthy until this past week. prior to this week, his only health issue was eosinophilic esophagitis that was not bothersome to him. He did have COVID back in March and was sick for several days. he was unvaccinated and has not received any vaccines since then. he states that he woke up tuesday am with a bum on his right calf that he thought might of been a bite from fishing on tuesday. as the day went on he started to feel sick and developed fevers and a rash. he was seen at the [facility] ED and worked up was negative - sent home on keflex and prednisoine. he took it once but made him feel sick and his symptoms worsened. he was seen by dermatology yesterday am - I spoke wto Dr Galarza prior to seeing patient today. she reports he looked toxic - diffuse rash, fevers up to 104.7 and SOB. she did a biopsy and placed him on doxy and sent him back to the ED. he was admitted last night. the rash covers him head to toe. some mouth ulcers as well. no conjunctivitis. no fmaily history of autoimmune diseases. he is still on doxycycline - has had some diarrhea lately and thinks from abx. he is a little better today. has some joint discofort at the right wrist and knees. he is up to date on childhood vaccines except chicken pox because he had that at age 3. no travel. his son did get ill on tuesday and his daughter today. the showed me pictures of her chest - did have a rash on it chest - large erythematous macule. she did take the kids to the doctor and was told viral. Brandyn was covid negative by PCR, most infectious work up is negative. awaiting erichiosis and babeosis PCR studies. awaiting ID consult. the floral decorator let me know that his biopsy just came back as an interface dermatitis - infectious, drug etc. he denies any prescription medications or otc meds other than what he has been prescribed by the ED or derm. Allergies Allergy/AdvReac Type Severity Reaction Status Date / Time azithromycin Allergy Unknown Verified 06/17/21 12:57 Home Medications Medication Instructions Recorded Confirmed Type cephalexin 500 mg capsule 500 mg PO TID 10 Days #30 cap 06/15/21 06/17/21 Rx prednisone 20 mg tablet 40 mg PO DAILY #14 tab 06/15/21 06/17/21 Rx rizatriptan 10 mg disintegrating 10 mg PO UD PRN 06/17/21 06/17/21 History tablet Patient History Medical History (Updated 06/18/21 @ 18:07 by Hubert Lambert MD) Eosinophilic esophagitis Migraine Rash Surgical History (Updated 06/17/21 @ 18:38 by Katarina Arvizu PA-C) History of tonsillectomy and adenoidectomy Family History (Updated 06/17/21 @ 18:39 by Katarina Arvizu PA-C) Brother Cancer Osteosarcoma Social History Smoking Status: Never smoker Hx Alcohol Use: Yes Hx Substance Use: No Preferred Language: Armenian Communication Ability: Effective Laborer [place] Required: No Beliefs That Will Affect Care: None Current Living Situation: Spouse Feels Safe at Home: Yes Assistive Devices: None Review of Systems Constitutional: fevers Ear, Nose, Mouth, Throat: mouth ulcers Respiratory: sob - now resolved Cardiovascular: Additional Comments: no chest pains Gastrointestinal: diarrhea Musculoskeletal: joint pains Integumentary: rash Physical Exam Constitutional: appears comfortable sitting in chair, non toxic appearing, AAOX3 Eyes: no conjunctivitis noted, no sclera erythema ENMT: no ulcers noted on limited exam, moist mucosa Neck: no adenopathy, neck supple Respiratory: normal respiratory effort, lungs clear to auscultation Cardiovascular: RRR, no murmur, no edema Gastrointestinal (Abdomen): normal bowel sounds, soft, nontender, no hepatosplenomegaly Musculoskeletal: no synovitis noted but some tenderness at the right wrist and left knee. no knee effusions Skin: diffuse erythemaous/macular rash all over his body with covalesence. some darker violaceous lesions on the legs with no ulcers. Results & Data ([facility]) Vital Signs (Past 12 Hours) Vital Signs Temp Pulse Resp BP BP Pulse Ox 06/18/21 16:49 37.7 C H 06/18/21 15:02 39.0 C H 108 H 143/86 H 98 06/18/21 12:25 38.2 C H 06/18/21 11:19 37.7 C H 103 H 18 129/69 97 06/18/21 07:55 39.4 C H 103 H 18 128/73 96 Laboratory Results reviewed Diagnostic Findings reviewed Medications Administered reviewed
--- NOTE | 2021-06-18 18:19 | Hospitalist Progress Note ---
Date of Service June 18, 2021 Assessment & Plan (1) Fever: (2) Rash: Plan: Diffuse Rash Fever -likely post viral exanthem -Infectious workup so far unrevealing, still waiting for babesia, anaplasma and ehrlichiosis PCR -Biopsy from yesterday reportedly interphase dermatitis -Appreciate Rheumatology input -Awaiting ID evaluation -TBD whether patient needs to be continued on doxycycline and whether he should be started on steroids SIRS -due to above -improved Likely discharge home tomorrow pending ID input (3) Migraine: Admission and Anticipated Discharge Date Admission Date: June 17, 2021 Subjective Fever defervesced today Reports some wrist soreness Physical Exam Physical Exam: Non toxic, no acute distress Respiratory: breathing comfortably on room air, no accessory muscle use Cardiovascular: regular rate and rhythm Skin: diffuse coalesced macular rash, appears less bright/less red than yesterday, no skin breakdown noted Results & Data Results & Data ([facility]) Vital Signs (Past 12 Hours) Vital Signs Temp Pulse Resp BP BP Pulse Ox 06/18/21 16:49 37.7 C H 06/18/21 15:02 39.0 C H 108 H 143/86 H 98 06/18/21 12:25 38.2 C H 06/18/21 11:19 37.7 C H 103 H 18 129/69 97 06/18/21 07:55 39.4 C H 103 H 18 128/73 96 Laboratory Results Short CBC 06/18/21 Range/Units 06:26 WBC 6.53 (4.8-10.8) K/uL Hgb 13.9 L (14.0-18.0) g/dL Hct 39.2 L (42-52) % Plt Count 118 L (130-400) K/uL BMP 06/18/21 06:26 Sodium 139 Potassium 3.7 Chloride 108 H Carbon Dioxide 24 BUN 9 Creatinine 1.10 Glucose 87 Calcium 7.8 L Liver Function 06/18/21 Range/Units 06:26 Total Bilirubin 0.9 (0.2-1.0) mg/dl Direct Bilirubin 0.2 (0-0.2) mg/dl AST 13 (13-39) U/L ALT 23 (7-52) U/L Alkaline Phosphatase 29 L (34-104) U/L Albumin 3.5 (3.4-5.0) gm/dl Medications Administered Current Inpatient Medications Acetaminophen (Acetaminophen 325 Mg Tab) 650 mg PO Q4H PRN PRN Reason: Pain or Fever Stop: 07/17/21 17:14 Last Admin: 06/18/21 15:16 Dose: 650 mg Documented by: Diphenhydramine HCl (Diphenhydramine Capsule 25 Mg Cap) 50 mg PO TID PRN PRN Reason: Itching Stop: 07/17/21 17:17 Last Admin: 06/18/21 08:06 Dose: 50 mg Documented by: Doxycycline Hyclate (Doxycycline Hyclate 100 Mg Cap) 100 mg PO BID [facility] Stop: 06/19/21 20:59 Last Admin: 06/18/21 08:02 Dose: 100 mg Documented by: Sodium Chloride (Nss 1000ml) 1,000 mls @ 125 mls/hr IV .Q8H [facility] Stop: 07/18/21 01:29 Last Admin: 06/18/21 18:15 Dose: 125 mls/hr Documented by: Ibuprofen (Ibuprofen 600 Mg Tab) 600 mg PO Q6H PRN PRN Reason: fever Stop: 07/17/21 18:46 Last Admin: 06/18/21 12:24 Dose: 600 mg Documented by: Ondansetron HCl (Ondansetron Inj 2 Mg/Ml 2 Ml Vial) 4 mg IV Q6H PRN PRN Reason: Nausea Stop: 07/17/21 17:14 Polyethylene Glycol (Polyethylene (Miralax) 17 Gm Pack) 17 gm PO DAILY PRN PRN Reason: Constipation Stop: 07/17/21 17:14
[2021-06-18] MEDS: ONDANSETRON INJ 2 MG/ML 2 ML VIAL IV PRN (23:11)
[2021-06-18] MEDS: FIRST - Mouthwash BLM 119 ML PO PRN (23:15)
[2021-06-19] MEDS: SODIUM CHLORIDE 0.9% 1000ML 1,000 ML IV SCH ×3 (01:23→17:44)
[2021-06-19] MEDS: ACETAMINOPHEN 325 MG TAB PO PRN (06:30)
[2021-06-19 07:23] LABS: Basophils # (auto) 0.01 K/uL (0-0.2); Basophils % (auto) 0.2 %; Eosinophils # (auto) 1.21 K/uL (0-0.5); Eosinophils % (auto) 19.2 %; Hemoglobin 14.2 g/dL (14.0-18.0); Immature Granulocytes # (auto) 0.01 K/uL (0.00-0.02); Immature Granulocytes % (auto) 0.2 %; Lymphocytes # (auto) 0.65 K/uL (1.2-3.4); Lymphocytes % (auto) 10.3 %; Mean Corpuscular Hemoglobin 29.3 pg (25-34); Mean Corpuscular Hgb Conc 35.5 g/dL (32-36); Mean Corpuscular Volume 82.6 fL (80-100); Mean Platelet Volume 11.8 fL (7.4-10.4); Monocytes % (auto) 3.2 %; Neutrophils # (auto) 4.21 K/uL (1.4-6.5); Neutrophils % (auto) 66.9 %; Platelet Count 122 K/uL (130-400); RDW Coefficient of Variation 13.5 % (11.5-14.5); Red Blood Count 4.84 M/uL (4.7-6.1); White Blood Count 6.29 K/uL (4.8-10.8)
[2021-06-19 07:38] LABS: Albumin Globulin Ratio 1.4 (0.9-2); Albumin Level 3.5 gm/dl (3.4-5.0); BUN Creatinine Ratio 7.6 (10-20); Bilirubin Direct 0.2 mg/dl (0-0.2); Bilirubin,Total 0.9 mg/dl (0.2-1.0); Creatinine Clr Calc Pharmacy 115.7 ml/min; Est GFR (Non-African American) 97.5 ml/min; Globulin 2.5 gm/dl (2.5-4.0); Potassium 3.7 mmol/L (3.5-5.1)
[2021-06-19] MEDS: DOXYCYCLINE HYCLATE 100 MG CAP PO SCH ×2 (09:52→11:12)
[2021-06-19] MEDS: FIRST - Mouthwash BLM 119 ML PO PRN ×2 (09:54→16:50)
[2021-06-19] MEDS: IBUPROFEN 600 MG TAB PO PRN (09:58)
[2021-06-19] MEDS: ACETAMINOPHEN SUSP 325 MG/10.15 ML UDC PO PRN ×2 (11:36→17:43)
[2021-06-19] MEDS: diphenhydrAMINE Capsule 25 MG CAP PO PRN (11:44)
[2021-06-19] MEDS ORDERED: IBUPROFEN 200 MG/10 ML UDC PO PRN (11:51)
[2021-06-19] MEDS ORDERED: DOXYCYCLINE SUSP 25 MG/5 ML 60ML PO ONE (12:00)
--- NOTE | 2021-06-19 17:27 | Hospitalist Progress Note ---
Date of Service June 19, 2021 Assessment & Plan Admission and Anticipated Discharge Date Admission Date: June 17, 2021 Results & Data Results & Data ([facility]) Vital Signs (Past 12 Hours) Vital Signs Temp Pulse Pulse Resp BP BP Pulse Ox 06/19/21 15:44 90 06/19/21 15:22 37.5 C 91 H 20 132/66 95 06/19/21 13:49 38.6 C H 06/19/21 12:44 39.3 C H 06/19/21 11:29 39.3 C H 100 H 20 145/71 H 98 06/19/21 07:44 108 H 06/19/21 06:37 38.7 C H 106 H 22 145/80 H 98 06/19/21 05:27 37.4 C Medications Administered Current Inpatient Medications Acetaminophen (Acetaminophen Susp 325 Mg/10.15 Ml Udc) 650 mg PO Q6H PRN PRN Reason: Pain or Fever (first line) Stop: 07/19/21 11:17 Last Admin: 06/19/21 11:36 Dose: 650 mg Documented by: Diphenhydramine HCl (Diphenhydramine Capsule 25 Mg Cap) 50 mg PO TID PRN PRN Reason: Itching Stop: 07/17/21 17:17 Last Admin: 06/19/21 11:44 Dose: 50 mg Documented by: Doxycycline Monohydrate (Doxycycline Susp 25 Mg/5 Ml 60ml) 100 mg PO BID [facility] Stop: 06/26/21 20:59 Sodium Chloride (Nss 1000ml) 1,000 mls @ 150 mls/hr IV .Q6H40M [facility] Stop: 07/18/21 01:29 Last Admin: 06/19/21 09:51 Dose: 125 mls/hr Documented by: Ibuprofen (Ibuprofen 200 Mg/10 Ml Udc) 400 mg PO Q6H PRN PRN Reason: fever (2nd line) Stop: 07/19/21 11:50 Last Admin: 06/19/21 12:45 Dose: 400 mg Documented by: Multi-Ingredient Mouthwash/Gargle (First - Mouthwash Blm 119 Ml) 5 ml PO QID PRN PRN Reason: painful oral sores Stop: 07/19/21 08:59 Last Admin: 06/19/21 16:50 Dose: 5 ml Documented by: Ondansetron HCl (Ondansetron Inj 2 Mg/Ml 2 Ml Vial) 4 mg IV Q6H PRN PRN Reason: Nausea Stop: 07/17/21 17:14 Last Admin: 06/18/21 23:11 Dose: 4 mg Documented by: Polyethylene Glycol (Polyethylene (Miralax) 17 Gm Pack) 17 gm PO DAILY PRN PRN Reason: Constipation Stop: 07/17/21 17:14
--- NOTE | 2021-06-19 17:43 | Discharge Summary ---
Date of Service June 19, 2021 Admission HPI Per Admitting Provider Patient is 26-year-old male with PMH eosinophilic esophagitis, migraine headache presented to ER referred from dermatology clinic today for rash and fever. Patient reports symptoms started on 06/14/2021, initially noticing 2 bumps to right lower calf. He reports progressed to pruritic red rash all over his body. He was seen at [facility] ER on 06/15/2021 for rash and was started on Keflex and prednisone. Patient reports had worsening rash and developed fever of 101F, felt like has facial swelling, generalized headache and reports SOB and returned to ER on 06/16/21. During that ER visit he had no leukocytosis on labs, had negative mono screen, negative Lyme AB, negative Anaplasma smear, and has ehrlichiosis and Babesia PCR is pending. Patient states today 06/17/2021 was seen by dermatology-Dr. Galarza. He was found to have fever there and had biopsy of skin lesion to left arm and abdomen and was referred to ER for further work-up. Dermatology thought possible differential diagnosis of ehrlichiosis, mycoplasma pneumonia with Larson-Jorge syndrome, anaplasmosis, versus etiologies. In clinic he was given doxycycline 200 mg orally. Patient denies recent travel, ill contacts. Reports did go fishing 4 to 5 days ago. Is unaware of any known tick or insect bites. He reports 5 days ago purchased a car from a friend who had a dog, and patient reports he has allergies to dogs. Denies any other new environmental exposures. Denies any new foods. Denies any other medications. Denies recent antibiotic use prior to what was prescribed to him on 06/15/2021. Reports female partner is his . Denies any other sexual partners. Denies history of STDs. Denies N/V/D/C, dizziness, syncope, vision changes, neck pain, CP, orthopnea, palpitations, cough, sore throat, choking, otalgia, rhinorrhea, abdominal pain, paresthesias, weakness, extremity weakness, extremity edema, urinary symptoms. History COVID-19 03/17/2021. Principal Diagnosis Rash Fever SIRS Interface Dermatitis Discharge Exam Appears weak, listless, diaphoretic Respiratory Breathing comfortably on room air, no wheezing/rhonchi/rales Cardiovascular Tachycardic but regular, no murmurs/rubs/gallops Gastrointestinal (Abdomen) soft Musculoskeletal swelling of right wrist Skin diffuse macular coalescing rash Discharge Data Allergies Allergy/AdvReac Type Severity Reaction Status Date / Time azithromycin Allergy Unknown Verified 06/17/21 12:57 Consultations 06/17/21 14:41 ED Decision to Admit Stat 06/17/21 17:15 Consult Infectious Diseases Routine 06/18/21 15:50 Consult Rheumatology Routine 06/19/21 16:36 Burn CD for patient Stat Hospital Course Mr Brandyn Duffy is a 26 year old man with history of Covid infection March 2021, reported history of up to date on childhood vaccinations, eosinophilic esophagitis not on medications and migraine headache initially pr esented to [facility] ER on 06/15 with rash. He was prescribed keflex and prednisone then discharged home. His rash worsened and spread all over his body. He followed up with Dermatology 06/17 and was sent back to the ER for admission. In the office, he reportedly appeared toxic (febrile) and complained of shortness of breath. Biopsies obtained in office (Dr Galarza). Since being admitted, he was placed on NSS at 150 cc/hr, doxycyline 100mg BID. He was evaluated by Rheumatology 06/18 (Dr Lucia) who reviewed case with Dermatology and biopsy pathology report (interface dermatitis) and felt that his current condition was likely a reactive inflammatory process with his recent viral illness exposure and not an autoimmune illness. He was recommended to continue doxycycline until evaluated by ID. He was seen by ID 06/19 and was again recommended to continue doxycyline and additional labwork was requested. In the interim, patient continues to have ongoing fever/tachycardia and now worsening fatigue/lethargy. Upon further investigation, mother reports he has a history of childhood leukemia and his brother was diagnosed with sarcoma. Family is concerned with his ongoing symptoms and "no clear answers". They have requested he be transferred to a high level of care which is appropriate in this current setting. [facility] was contacted and he was accepted for transfer for multidisciplinary care. He should be evaluated again by ID, Rheumatology and Hematology (hematology not available here at [facility]). Patient needs CT chest/abdomen/pelvis to evaluate for occult malignancy. This was not done here due to pending transfer. At time of discharge, his Anaplasma PCR, Ehrlichia PCR and Chlamydia and GC urine studies are pending Additional labwork and microbiology studies will be at the discretion of the accepting facility. Total Time Total Time Spent Total Time Spent (In Minutes): 60 Discharge Plan Discharge Items Patient Disposition: Transfer Acute Care Hospital Reason For Visit: FEVER Discharge Diagnosis: Fever Rash Interface dermatitis Condition on Discharge: Fair Activity: Resume your previous activity Non-emergency contact: Primary Care Provider Call non-emergency contact if: you have any medication questions Follow-up/Referrals: Jordon Quach, [Outside Practitioners] - (Date & Time 06/24/2021 11:00 AM Provider Imelda Jimenez MD Department Family [facility] ) Diet: Regular Diet Texture: Easy to Chew Addtl Attending Provider Instructions: Current Inpatient Medications Acetaminophen (Acetaminophen Susp 325 Mg/10.15 Ml Udc) 650 mg PO Q6H PRN PRN Reason: Pain or Fever (first line) Stop: 07/19/21 11:17 Last Admin: 06/19/21 11:36 Dose: 650 mg Documented by: Diphenhydramine HCl (Diphenhydramine Capsule 25 Mg Cap) 50 mg PO TID PRN PRN Reason: Itching Stop: 07/17/21 17:17 Last Admin: 06/19/21 11:44 Dose: 50 mg Documented by: Doxycycline Monohydrate (Doxycycline Susp 25 Mg/5 Ml 60ml) 100 mg PO BID [facility] Stop: 06/26/21 20:59 Sodium Chloride (Nss 1000ml) 1,000 mls @ 150 mls/hr IV .Q6H40M [facility] Stop: 07/18/21 01:29 Last Admin: 06/19/21 09:51 Dose: 125 mls/hr Documented by: Ibuprofen (Ibuprofen 200 Mg/10 Ml Udc) 400 mg PO Q6H PRN PRN Reason: fever (2nd line) Stop: 07/19/21 11:50 Last Admin: 06/19/21 12:45 Dose: 400 mg Documented by: Multi-Ingredient Mouthwash/Gargle (First - Mouthwash Blm 119 Ml) 5 ml PO QID PRN PRN Reason: painful oral sores Stop: 07/19/21 08:59 Last Admin: 06/19/21 16:50 Dose: 5 ml Documented by: Ondansetron HCl (Ondansetron Inj 2 Mg/Ml 2 Ml Vial) 4 mg IV Q6H PRN PRN Reason: Nausea Stop: 07/17/21 17:14 Last Admin: 06/18/21 23:11 Dose: 4 mg Documented by: Polyethylene Glycol (Polyethylene (Miralax) 17 Gm Pack) 17 gm PO DAILY PRN PRN Reason: Constipation Stop: 07/17/21 17:14 Pending Studies at Discharge: Yes Studies:: Ehrlichiosis PCR Anaplasmosis PCR Stand-Alone Forms: [facility] Skilled Items Patient informed of condition?: Yes DNR: No Discharge Level of Care: Other Communicable Disease: No Discharge Prognosis: Stable Lines: None and Peripheral IV Urinary Catheter: No Medications and DC Order Prescriptions: Discontinued prednisone 20 mg tablet 40 mg PO DAILY Qty: 14 RF: 0 cephalexin 500 mg capsule 500 mg PO TID 10 Days Qty: 30 RF: 0 rizatriptan 10 mg tablet,disintegrating 10 mg PO UD PRN (Reason: Headache) RF: 0 Discharge Orders: Discharge Order (Routine); Ordered 06/19/21 Ordered By: Hector Reeves Admission Data Admit Date/Time: 06/17/21 14:53 Attending Provider: Hector Reeves Admit Provider: Hector Reeves Primary Care Provider: PCP,NO Other Providers: Hector Reeves ; Albert Santos ; Russ Charles ; James Sun I. ; Rohit Xavier II ; Claire Victor ; Khang Valentin ; Jonas Waite ; Hubert Lambert
[2021-06-19] MEDS: ONDANSETRON INJ 2 MG/ML 2 ML VIAL IV PRN (19:13)
[2021-06-19] MEDS ORDERED: DOXYCYCLINE SUSP 25 MG/5 ML 60ML PO SCH (21:00)
[2021-06-21 12:25] LABS: Chlamydia Trach RNA NOT DETECTED (NOT DETECTED); GC (Neis gonorrhoeae) RNA NOT DETECTED (NOT DETECTED)
== END 2021-06-19 19:30 | disposition short-term general hospital (02) | DRG 607 ==
LOC: ED 11:57 → 2N 14:53

== ENCOUNTER 2025-03-07 01:27 | Observation (INO) ==
[2025-03-07 02:17] LABS: Hematocrit (blood only) 40.8 % (42.0-52.0); Hemoglobin 14.9 g/dL (14.0-18.0); Immature Granulocytes # (auto) 0.02 K/uL (0.01-0.20); Immature Granulocytes % (auto) 0.3 %; Mean Corpuscular Hemoglobin 29.4 pg (25.0-34.0); Mean Corpuscular Volume 80.5 fL (80.0-100.0); Platelet Count 131 K/uL (130-400); RDW Standard Deviation 37.6 fL (36.4-46.3); Red Blood Count 5.07 M/uL (4.70-6.10); White Blood Count 7.99 K/ul (4.8-10.8)
--- NOTE | 2025-03-07 02:25 | Emergency Department Note ---
Impression & Plan Abdominal pain, acute, right upper quadrant, Migraine, Fever admit to the [facility] ED Provider Note NAME: JOSE L CLIFFORD AGE: 30 SEX: Male INFORMANT: Patient ED PROVIDER(S): Fely Polanco DO CHIEF COMPLAINT: Right upper quadrant abdominal pain and fever PLAN: Disposition: admit to the [facility] MEDICAL DECISION MAKING: This is a 30-year-old male patient with a strong family history of gallbladder problems and personal history of gallbladder disease from earlier this year who presents to the emergency department with worsening right upper quadrant abdominal pain over the past 4 days and fever. Patient explains that he noted this right upper quadrant abdominal pain approximately 4 days ago that seem to worsen with eating. He then seemed to lose his appetite and now has had a migraine for the past 2 days. Patient became concerned tonight when he developed a fever and chills. Patient explains that earlier this year he had a similar presentation of right upper quadrant abdominal pain and was told that he had problems with his gallbladder. He was scheduled to follow-up with a surgeon to potentially have the gallbladder removed but never followed through with surgery. He underwent HIDA scan in July 2024 which revealed patent cystic common bile ducts. The gallbladder ejection fraction at that time was elevated at 87%. 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 On evaluation today, the patient has a positive Shaikh sign. He describes significant pain in that area every time he tries to eat anything. He was medicated with IV Zofran, Tylenol and Dilaudid which gave him relief of some of his right upper quadrant abdominal pain but the nausea persisted. He was given a dose of IV Compazine which helped with the nausea and migraine. Right upper quadrant ultrasound was positive for sludge but no other acute findings for cholecystitis. Because the patient presented with a fever, I did add upper respiratory testing for COVID, influenza, and RSV which were all negative. I also ordered a chest x-ray which showed no acute findings. Upon repeat assessment, the patient still had some discomfort in the right upper quadrant of the abdomen. Of asked the patient be evaluated by the [facility] team. Care/management discussed with: circulation manager [facility] Triage Nursing notes: reviewed and agree With them. Vital Signs: reviewed and remarkable for fever Additional History obtained from: family members at the bedside Differential Diagnosis: sepsis, acute cholecystitis, choledocholithiasis, Diagnostics, independently interpreted by me: ECG: normal sinus rhythm at a rate of [address] segment elevation or signs of ischemia. Cardiac Monitoring: normal sinus rhythm at a rate of 88 Imaging studies: right upper quadrant ultrasound:as per [facility] Portable chest x-ray: as per [facility] [place] HPI: 30 year old Male arrives for evaluation of Fever, right upper quadrant abdominal pain and migraine. Patient explains that he noted this right upper quadrant abdominal pain approximately 4 days ago that seem to worsen with eating. He then seemed to lose his appetite and now has had a migraine for the past 2 days. Patient became concerned tonight when he developed a fever and chills. 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 Pupils are equal, round, and reactive to light. Extraocular eye muscles are intact, and sclera are anicteric. Nose - moist nasal mucosa without discharge. Mouth - moist buccal mucosa. Oropharynx is nonerythematous and there is no tonsillar exudate or edema noted. Neck: Supple; no Cervical lymphadenopathy Heart: Regular rate and rhythm. There is a normal S1 and S2 with no murmurs, clicks, or gallops appreciated. Lungs: Clear to auscultation bilaterally with no wheezes, rales, or rhonchi. Abdomen: Soft, moderate pain to palpation in the right upper quadrant, nondistended, with good bowel sounds. There are no palpable pulsatile masses or hepatosplenomegaly. There is no guarding, rigidity, or rebound noted. Extremities: No evidence of cyanosis, clubbing, or edema. There are easily palpable peripheral pulses. Skin: hot and dry with good turgor and no rashes. Emergency department treatment: front desk monitor, IV normal saline bolus, IV Zofran, IV Tylenol, IV Dilaudid, IV Compazine, IV Toradol emergency department course: The patient was evaluated in room A-10. A complete history and physical was performed. A septic protocol was performed. an order was placed for continuous cardiac monitoring. The patient was in a normal sinus rhythm at a rate of 88. Twelve-lead EKG was obtained as described above. Patient was bolused with IV normal saline solution and given a dose of IV Zofran for his nausea. He was given IV Tylenol for his fever and IV Dilaudid for the headache and right upper quadrant abdominal pain. Patient went for ultrasound of the right upper quadrant. Upon returning from radiology, the patient was still quite nauseated and complaining of the persistent migraine. He went on to receive a dose of IV Compazine and IV Toradol. Portable chest x-ray was performed. Nasal swab was performed for influenza, RSV and COVID. These were all unremarkable. Patient was still experiencing right upper quadrant abdominal pain. I discussed the case with the [facility] Hospitalist group. Past Med/Surg History Problem List (Updated 03/07/25 @ 06:03 by Fely Polanco DO) Fever (Acute) Migraine (Acute) Abdominal pain, acute, right upper quadrant (Acute) Intractable right upper quadrant abdominal pain Interface dermatitis Fever SIRS (systemic inflammatory response syndrome) (Acute) Migraine Eosinophilic esophagitis Rash (Acute) Surgical History (Updated 06/17/21 @ 18:38 by Katarina Arvizu PA-C) History of tonsillectomy and adenoidectomy Family History (Updated 06/17/21 @ 18:39 by Katarina Arvizu PA-C) Brother Cancer Osteosarcoma Social History Smoking Status: Never smoker Hx Alcohol Use: Yes Hx Substance Use: No Preferred Language: Wolof Communication Ability: Effective Bi Technical Lead Required: No Beliefs That Will Affect Care: None Current Living Situation: Spouse Feels Safe at Home: Yes Assistive Devices: None Allergies Allergies Allergy/AdvReac Type Severity Reaction Status Date / Time azithromycin Allergy Unknown HAPPENED A Verified 03/07/25 02:21 LONG TIME AGO--CAN'T REMEMBER Home Meds Home Medications Medication Instructions Recorded Confirmed omeprazole 40 mg capsule,delayed 40 mg PO DAILY 03/07/25 03/07/25 release Results & Data (ED) Vital Signs Vital Signs - 24 hr 03/07/25 01:35 03/07/25 01:52 03/07/25 02:00 Temperature 38.1 C H Temperature Source Oral Pulse Rate 96 H 88 Pulse Rate [Apical] Pulse Rate from SpO2 Sensor Pulse Rhythm [Apical] Pulse Strength [Apical] Respiratory Rate 18 Respiratory Effort / Characteristics Non-Labored Spontaneous Respiratory Depth Normal Respiratory Pattern Regular Blood Pressure 134/89 Blood Pressure [Right Arm] Blood Pressure Mean 104 Blood Pressure Mean [Right Arm] Blood Pressure Position Sitting Blood Pressure Position [Right Arm] Pulse Oximetry 97 Oxygen Delivery Method Room Air Room Air Sepsis Recent Fever Within 48 Hours Yes Sepsis New/Unexplained Change in Mental Status N/A Sepsis Action Taken by Nursing No Action Required 03/07/25 02:00 03/07/25 02:30 03/07/25 03:00 Temperature Temperature Source Pulse Rate 78 80 68 Pulse Rate [Apical] Pulse Rate from SpO2 Sensor 80 71 Pulse Rhythm [Apical] Pulse Strength [Apical] Respiratory Rate 14 17 15 Respiratory Effort / Characteristics Respiratory Depth Respiratory Pattern Blood Pressure 138/83 137/82 120/71 Blood Pressure [Right Arm] Blood Pressure Mean 101 100 87 Blood Pressure Mean [Right Arm] Blood Pressure Position Blood Pressure Position [Right Arm] Pulse Oximetry 96 95 Oxygen Delivery Method Sepsis Recent Fever Within 48 Hours Sepsis New/Unexplained Change in Mental Status Sepsis Action Taken by Nursing 03/07/25 03:30 03/07/25 04:18 03/07/25 04:54 Temperature 37.2 C 37.1 C Temperature Source Oral Oral Pulse Rate Pulse Rate [Apical] 52 L Pulse Rate from SpO2 Sensor Pulse Rhythm [Apical] Pulse Strength [Apical] Respiratory Rate 18 Respiratory Effort / Characteristics Respiratory Depth Respiratory Pattern Blood Pressure Blood Pressure [Right Arm] 106/63 Blood Pressure Mean Blood Pressure Mean [Right Arm] 77 Blood Pressure Position Blood Pressure Position [Right Arm] Lying Pulse Oximetry 94 Oxygen Delivery Method Room Air Sepsis Recent Fever Within 48 Hours Sepsis New/Unexplained Change in Mental Status Sepsis Action Taken by Nursing 03/07/25 06:00 Temperature Temperature Source Pulse Rate Pulse Rate [Apical] 54 L Pulse Rate from SpO2 Sensor Pulse Rhythm [Apical] Regular Pulse Strength [Apical] Normal Respiratory Rate 18 Respiratory Effort / Characteristics Non-Labored Accessory Muscle Use Respiratory Depth Normal Respiratory Pattern Regular Blood Pressure Blood Pressure [Right Arm] 111/64 Blood Pressure Mean Blood Pressure Mean [Right Arm] 79 Blood Pressure Position Blood Pressure Position [Right Arm] Pulse Oximetry 96 Oxygen Delivery Method Room Air Sepsis Recent Fever Within 48 Hours Sepsis New/Unexplained Change in Mental Status Sepsis Action Taken by Nursing Laboratory Data 03/07/25 02:00 03/07/25 02:00 Lab Results 12/03/07/25 03/07/25 Range/Units 02:00 02:20 04:06 WBC 7.99 (4.8-10.8) K/ul RBC 5.07 (4.70-6.10) M/uL Hgb 14.9 (14.0-18.0) g/dL Hct 40.8 L (42.0-52.0) % MCV 80.5 (80.0-100.0) fL MCH 29.4 (25.0-34.0) pg MCHC 36.5 H (32.0-36.0) g/dL RDW Std Deviation 37.6 (36.4-46.3) fL RDW Coeff of [place]id[place] 13.2 (11.5-14.5) % Plt Count 131 (130-400) K/uL MPV 12.2 (9.4-12.4) fL Immature Gran % (Auto) 0.3 % Neut % (Auto) 77.6 % Lymph % (Auto) 13.3 % [place] % (Auto) 6.9 % Eos % (Auto) 1.6 % Baso % (Auto) 0.3 % Neut # (Auto) 6.21 (1.40-6.50) K/uL Lymph # (Auto) 1.06 L (1.20-3.40) K/uL [place] # (Auto) 0.55 (0.11-0.59) K/uL Eos # (Auto) 0.13 (0.00-0.50) K/uL Baso # (Auto) 0.02 (0.00-0.20) K/uL Immature Gran # (Auto) 0.02 (0.01-0.20) K/uL Sodium 137 (136-145) mmol/L Potassium 3.7 (3.5-5.1) mmol/L Chloride 103 (98-107) mmol/L Carbon Dioxide 27 (21-32) mmol/L Anion Gap 7 (3-11) BUN 11 (6-23) mg/dl Creatinine 0.98 (0.6-1.4) mg/dl Est Cr Clr Drug Dosing 119.2 ml/min eGFR 106.38 BUN/Creatinine Ratio 11.2 (10-20) Glucose 108 H (70-99(Fasting)) mg/dl Lactate 1.0 (0.4-2.0) mmol/L Calcium 9.5 (8.6-10.3) mg/dl Magnesium 1.9 (1.7-2.4) mg/dl Total Bilirubin 0.7 (0.2-1.0) mg/dl Direct Bilirubin 0.2 (0-0.2) mg/dl AST 16 (13-39) U/L ALT 32 (7-52) U/L Alkaline Phosphatase 40 (34-104) U/L Troponin I High Sens 3.4 (0-20) pg/ml Total Protein 7.4 (6.0-8.3) gm/dl Albumin 4.4 (3.4-5.0) gm/dl Procalcitonin 0.03 (0-0.5) ng/ml Urine Color Urine Appearance (Clear) Urine pH (4.5-7.5) Ur Specific [place] (1.000-1.030) Urine Protein (Negative) Urine Glucose (UA) (Negative) Urine Ketones (Negative) Urine Blood (Negative) Urine Nitrite (Negative) Urine Bilirubin (Negative) Urine Urobilinogen (Negative) Ur Leukocyte Esterase (Negative) Urine Comment SARS-CoV-2 (PCR) NEGATIVE (Negative) Influenza Type A (PCR) Negative (Neg) Influenza Type B (PCR) Negative (Neg) RSV (RT-PCR) Negative (Neg) 03/07/25 Range/Units 04:14 WBC (4.8-10.8) K/ul RBC (4.70-6.10) M/uL Hgb (14.0-18.0) g/dL Hct (42.0-52.0) % MCV (80.0-100.0) fL MCH (25.0-34.0) pg MCHC (32.0-36.0) g/dL RDW Std Deviation (36.4-46.3) fL RDW Coeff of [place]idra (11.5-14.5) % Plt Count (130-400) K/uL MPV (9.4-12.4) fL Immature Gran % (Auto) % Neut % (Auto) % Lymph % (Auto) % [place] % (Auto) % Eos % (Auto) % Baso % (Auto) % Neut # (Auto) (1.40-6.50) K/uL Lymph # (Auto) (1.20-3.40) K/uL [place] # (Auto) (0.11-0.59) K/uL Eos # (Auto) (0.00-0.50) K/uL Baso # (Auto) (0.00-0.20) K/uL Immature Gran # (Auto) (0.01-0.20) K/uL Sodium (136-145) mmol/L Potassium (3.5-5.1) mmol/L Chloride (98-107) mmol/L Carbon Dioxide (21-32) mmol/L Anion Gap (3-11) BUN (6-23) mg/dl Creatinine (0.6-1.4) mg/dl Est Cr Clr Drug Dosing ml/min eGFR BUN/Creatinine Ratio (10-20) Glucose (70-99(Fasting)) mg/dl Lactate (0.4-2.0) mmol/L Calcium (8.6-10.3) mg/dl Magnesium (1.7-2.4) mg/dl Total Bilirubin (0.2-1.0) mg/dl Direct Bilirubin (0-0.2) mg/dl AST (13-39) U/L ALT (7-52) U/L Alkaline Phosphatase (34-104) U/L Troponin I High Sens (0-20) pg/ml Total Protein (6.0-8.3) gm/dl Albumin (3.4-5.0) gm/dl Procalcitonin (0-0.5) ng/ml Urine Color Yellow Urine Appearance Clear (Clear) Urine pH 7.0 (4.5-7.5) Ur Specific [place] 1.025 (1.000-1.030) Urine Protein Negative (Negative) Urine Glucose (UA) Negative (Negative) Urine Ketones Negative (Negative) Urine Blood Negative (Negative) Urine Nitrite Negative (Negative) Urine Bilirubin Negative (Negative) Urine Urobilinogen Negative (Negative) Ur Leukocyte Esterase Negative (Negative) Urine Comment SARS-CoV-2 (PCR) (Negative) Influenza Type A (PCR) (Neg) Influenza Type B (PCR) (Neg) RSV (RT-PCR) (Neg) Administered Medications Discontinued Medications Hydromorphone HCl (Hydromorphone Inj 1 Mg/Ml Syringe) 1 mg IV NOW STA Stop: 03/07/25 02:16 Last Admin: 12/25/25 02:28 Dose: 1 mg Documented By: DIONEW Acetaminophen (Ofirmev) 1,000 mg in 100 mls @ 400 mls/hr IV NOW STA Stop: 03/07/25 02:29 Last Infusion: 03/07/25 02:58 Dose: Infused Documented By: Admin: 03/07/25 02:28 Dose: 400 mls/hr Documented By: BRANDON Sodium Chloride (Nss) 1,000 mls @ 999 mls/hr IV .Q1H1M ONE Stop: 03/07/25 03:15 Last Infusion: 03/07/25 03:30 Dose: Infused Documented By: Admin: 03/07/25 02:28 Dose: 999 mls/hr Documented By: BRANDON Prochlorperazine (Compazine) 1 mls @ 1 mls/min IV ONE ONE Stop: 03/07/25 03:33 Last Admin: 03/07/25 03:39 Dose: 1 mls/min Documented By: BRANDON Pantoprazole Sodium (Protonix) 40 mg in 10 mls @ 5 mls/min IV NOW ONE Stop: 03/07/25 05:28 Last Admin: 03/07/25 06:03 Dose: 5 mls/min Documented By: kayla Ketorolac Tromethamine (Ketorolac Tromethamine 15 Mg/Ml Vial) 15 mg IV NOW STA Stop: 03/07/25 03:34 Last Admin: 03/07/25 03:38 Dose: 15 mg Documented By: BRANDON Ondansetron HCl (Ondansetron Inj 2 Mg/Ml 2 Ml Vial) 4 mg IV NOW STA Stop: 03/07/25 02:16 Last Admin: 03/07/25 02:28 Dose: 4 mg Documented By: BRANDON Imaging Data Radiologist's Impression: Gallbladder Ultrasound 03/07/25 02:16 EXAM: US gallbladder CLINICAL HISTORY: RUQ pain and fever TECHNIQUE: Ultrasound examination of the RUQ was performed using a [high-frequency transducer]. Scanning was performed with the patient in supine position. The following structures were specifically evaluated: COMPARISON: None available. FINDINGS: Liver: Liver size: 15.7 cm.Liver appears borderline enlarged in size, with possible mild increased parenchymal echogenicity A hypoechoic area seen in liver as per image: 200( 20/48) possibly fat sparing area No evidence of focal lesions, cysts, or masses. Hepatic vasculature appears normal. Gallbladder: Gallbladder size: Gallbladder is visualized and appears normal in size and shape. Mild sludge seen in the gallbladder. No gallstones, wall thickening, or pericholecystic fluid noted. Wall thickness measures 2 mm No evidence of gallbladder wall edema or signs of acute cholecystitis. Shaikh's sign is negative Biliary Tree: Common bile duct diameter: 3 mm. Common bile duct is within normal limits in caliber and not dilated. No evidence of choledocholithiasis or biliary obstruction. Pancreas: The visualized pancreas appears unremarkable. Right Kidney: Right kidney size: 11.0 cm . Right kidney appears normal in size with preserved corticomedullary differentiation. No evidence of hydronephrosis, renal cysts, or masses. Additional Findings: None IMPRESSION: 1. Mild sludge seen in the gallbladder. 2. No features of acute cholecystitis or pancreatitis 3. Borderline hepatomegaly with possible mild fatty changes in liver Electronically signed by Akash Frazier 03-07-2025 03:53 AM Chest X-Ray 03/07/25 04:04 EXAM: XR chest 1V portable CLINICAL HISTORY: fever TECHNIQUE: An X-ray image of the chest is obtained in AP projection. COMPARISON: None. FINDINGS: The lungs are clear and well-expanded with no pulmonary infiltrate or pleural effusion. The cardiomediastinal silhouette is within normal limits. No acute osseous abnormality. IMPRESSION: 1. No acute cardiopulmonary disease. Electronically signed by Karlos Toscano 03-07-2025 05:22 AM Discharge Plan Visit Data Chief Complaint: Abdominal Pain Stated Complaint: ABD PAIN,GALLBLADDER,FEVER ED Provider: Fely Polanco Discharge Problem: Abdominal pain, acute, right upper quadrant, Migraine, Fever Condition: Fair Forms Stand Alone Forms: [facility] Prescriptions Prescriptions: No Action omeprazole 40 mg capsule,delayed release(DR/EC) 40 mg PO DAILY Referrals Referrals: PCP,NO [Primary Care Provider] -
[2025-03-07] MEDS: HYDROmorphone INJ 1 MG/ML SYRINGE IV STA (02:28)
[2025-03-07] MEDS: ACETAMINOPHEN 1,000 MG/100 ML VIAL IV STA (02:28)
[2025-03-07] MEDS: ONDANSETRON INJ 2 MG/ML 2 ML VIAL IV STA (02:28)
[2025-03-07] MEDS: SODIUM CHLORIDE 0.9% 1,000 ML IV ONE (02:28)
[2025-03-07 02:34] LABS: Alanine Aminotransferase 32.0 U/L (7-52); Albumin Level 4.4 gm/dl (3.4-5.0); Alkaline Phosphatase 40.0 U/L (34-104); Anion Gap 7.0 (3-11); Bilirubin,Total 0.7 mg/dl (0.2-1.0); Blood Urea Nitrogen 11.0 mg/dl (6-23); Calcium 9.5 mg/dl (8.6-10.3); Carbon Dioxide 27.0 mmol/L (21-32); Chloride 103.0 mmol/L (98-107); Creatinine Clr Calc Pharmacy 119.2 ml/min; Glucose 108.0 mg/dl (70-99(Fasting)); Magnesium 1.9 mg/dl (1.7-2.4); Potassium 3.7 mmol/L (3.5-5.1); Sodium 137.0 mmol/L (136-145); Total Protein 7.4 gm/dl (6.0-8.3)
[2025-03-07] MEDS: KETOROLAC TROMETHAMINE 15 MG/ML VIAL IV STA (03:38)
[2025-03-07] MEDS: PROCHLORPERAZINE 1 ML IV ONE (03:39)
--- NOTE | 2025-03-07 03:53 | Ultrasound Report ---
EXAM: US gallbladder CLINICAL HISTORY: RUQ pain and fever TECHNIQUE: Ultrasound examination of the RUQ was performed using a [high-frequency transducer]. Scanning was performed with the patient in supine position. The following structures were specifically evaluated: COMPARISON: None available. FINDINGS: Liver: Liver size: 15.7 cm.Liver appears borderline enlarged in size, with possible mild increased parenchymal echogenicity A hypoechoic area seen in liver as per image: 200( 20/48) possibly fat sparing area No evidence of focal lesions, cysts, or masses. Hepatic vasculature appears normal. Gallbladder: Gallbladder size: Gallbladder is visualized and appears normal in size and shape. Mild sludge seen in the gallbladder. No gallstones, wall thickening, or pericholecystic fluid noted. Wall thickness measures 2 mm No evidence of gallbladder wall edema or signs of acute cholecystitis. Shaikh's sign is negative Biliary Tree: Common bile duct diameter: 3 mm. Common bile duct is within normal limits in caliber and not dilated. No evidence of choledocholithiasis or biliary obstruction. Pancreas: The visualized pancreas appears unremarkable. Right Kidney: Right kidney size: 11.0 cm . Right kidney appears normal in size with preserved corticomedullary differentiation. No evidence of hydronephrosis, renal cysts, or masses. Additional Findings: None IMPRESSION: 1. Mild sludge seen in the gallbladder. 2. No features of acute cholecystitis or pancreatitis 3. Borderline hepatomegaly with possible mild fatty changes in liver Electronically signed by Akash Frazier 03-07-2025 03:53 AM
[2025-03-07 04:28] LABS: Appearance Urine Clear (Clear); Glucose Urine UA Negative (Negative)
[2025-03-07 04:54] LABS: Influenza A virus by PCR Negative (Neg); Influenza B virus by PCR Negative (Neg); SARS CoV2 RNA(COVID-19) Ceph NEGATIVE (Negative)
--- NOTE | 2025-03-07 05:22 | XRay Report ---
EXAM: XR chest 1V portable CLINICAL HISTORY: fever TECHNIQUE: An X-ray image of the chest is obtained in AP projection. COMPARISON: None. FINDINGS: The lungs are clear and well-expanded with no pulmonary infiltrate or pleural effusion. The cardiomediastinal silhouette is within normal limits. No acute osseous abnormality. IMPRESSION: 1. No acute cardiopulmonary disease. Electronically signed by Karlos Toscano 03-07-2025 05:22 AM
--- NOTE | 2025-03-07 05:23 | History & Physical Report ---
Date of Service March 07, 2025 Assessment & Plan (1) Intractable right upper quadrant abdominal pain: (2) Fever: (3) Migraine: Plan Patient is a 30-year-old male with past medical history of GERD, and reported gallbladder issues. Patient presented to the ED due to abdominal pain worse with eating since Tuesday, constant migraine since Tuesday, poor appetite, fever, and chills. Patient with temperature of 38.1 and tachycardia on arrival to ED, improved with IVF and Tylenol. Laboratories unremarkable. Diagnostic imaging revealed gallbladder sludge on ultrasound however no evidence of cholecystitis. Patient is being admitted for intractable abdominal pain and intractable headache. #intractable abdominal pain/fever - temp 38.1C on arrival to ED, resolved with Tylenol. Workup unremarkable - no leukocytosis, LFTs WNL, gallbladder US with mild sludge (no cholecystitis), UA negative for infection, covid/flu/rsv swab negative. - received 1L NSS bolus in ED, continue with LR @ 80 ml/hr x1L - Transition PPI to IV Tylenol for fever as needed Pain control with Tylenol, Toradol, morphine for breakthrough pain - full liquid diet, advance as tolerated - UDS ordered - follow blood cultures - repeat CBC and CMP at 1200 03/07 - needs new referral to general surgery in outpatient setting regarding cholecystectomy, no acute indication for urgent removal - previously followed with [facility] #Intractable migraine - Migraine hx. Denies any auras. Improving. - continue pain control regimen as above - mag 1.9 - 1g IV mag ordered on admission - zofran prn for nausea VTE ppx: SCDs, low risk Dispo: med surg, obs - possible dc home 03/07 after labs if pain well controlled Admission and Anticipated Discharge Date Admission Date: 03/07/25 History of Present Illness Chief Complaint: abd pain Primary Care Provider: NO PCP Patient is a 30-year-old male with past medical history of GERD, and reported gallbladder issues. Patient presented to the ED due to abdominal pain worse with eating since Tuesday, constant migraine since Tuesday, poor appetite, fever, and chills. Patient with temperature of 38.1 and tachycardia on arrival to ED, improved with IVF and Tylenol. Laboratories unremarkable. Diagnostic imaging revealed gallbladder sludge on ultrasound however no evidence of cholecystitis. Patient is being admitted for intractable abdominal pain and intractable headache. Patient seen at bedside with his family present. He was sleeping frequently on exam however responded to verbal stimuli. He stated his abdominal pain started on Tuesday gets worse with eating and drinking, occasionally there at rest however most often associated with meals. It feels sharp and burning. Pain currently 2/10 at bedside after Tylenol 1G IV Dilaudid 1 Mg IV in the ED. He does have a history of gallbladder issues and stated he followed with [facility] and was to have surgery in July however missed his appointment. 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 He denies any nausea or vomiting. Patient also reports a constant migraine since Tuesday which he does have a history of migraines. Typically relieved with food, Tylenol, and sleeping. All of these measures did not control his m igraine at home. He denies any blurred vision, double vision, tinnitus, dizziness, lightheadedness, chest pain, shortness of breath, rhinorrhea, sore throat, dysuria, hematuria, diarrhea. He denies nicotine, alcohol, or illicit drug use. His only medication is omeprazole. Note that patient follows with [facility] however being seen by [facility] team due to insurance. Allergies Allergy/AdvReac Type Severity Reaction Status Date / Time azithromycin Allergy Unknown HAPPENED A Verified 03/07/25 02:21 LONG TIME AGO--CAN'T REMEMBER Home Medications Medication Instructions Recorded Confirmed Type omeprazole 40 mg capsule,delayed 40 mg PO DAILY 03/07/25 03/07/25 History release Past Med/Surg History Problem List Surgical History (Updated 06/17/21 @ 18:38 by Katarina Arvizu PA-C) History of tonsillectomy and adenoidectomy Family History (Updated 06/17/21 @ 18:39 by Katarina Arvizu PA-C) Brother Cancer Osteosarcoma Social History Smoking Status: Never smoker Hx Alcohol Use: Yes Hx Substance Use: No Preferred Language: Vincentian Communication Ability: Effective 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 Non-toxic appearing. HEENT- EOMI, mucous membranes dry. Hearing grossly intact. Heart-normal S1 and S2. No murmurs, rubs or gallops. Lungs-clear bilaterally, no respiratory distress, no accessory muscle use. Abdomen-normal bowel sounds and soft. No ascites noted. Non-tender. Extremities- no clubbing, cyanosis, or edema. Rheumatologic-normal range of motion. Psychiatric-normal affect. Results & Data Results & Data Vital Signs (Past 12 Hours) Vital Signs Temp Pulse Pulse Resp BP BP Pulse Ox 03/07/25 04:54 37.1 C 03/07/25 04:18 52 L 18 106/63 94 03/07/25 03:30 37.2 C 03/07/25 03:00 68 15 120/71 95 03/07/25 02:30 80 17 137/82 96 03/07/25 02:00 78 14 138/83 03/07/25 02:00 88 03/07/25 01:52 03/07/25 01:35 38.1 C H 96 H 18 134/89 97 O2 Del Method 03/07/25 04:54 03/07/25 04:18 Room Air 03/07/25 03:30 03/07/25 03:00 03/07/25 02:30 03/07/25 02:00 03/07/25 02:00 03/07/25 01:52 Room Air 03/07/25 01:35 Room Air Laboratory Results Reviewed CBC, CMP, Pro-Eugenio, UA, troponin, mag, covid/flu/rsv swab ordered UDS Diagnostic Findings reviewed gallbladder us and cxr Medications Administered ED - zofran 4mg IV, Tylenol 1g IV, Dilaudid 1mg IV, 1l NSS, Compazine ECG Additional Comments: NSR rate 77 qtc 380 Code Status & VTE Plan Code Status full VTE Prophylaxis Plan VTE Prophylaxis will be ordered: Yes Supervising Physician Co-Signing Physician Notes Attending addendum: I have physically seen this patient, have supervised the REJI's activities, and agree with the H&P unless as otherwise noted. Assessment and Plan: The patient is a 30-year-old male with past medical history including GERD, he reported previous gallbladder issues. He presented to the emergency department due to worsening abdominal pain and right upper quadrant since Tuesday, a constant migraine since Tuesday, and poor appetite with fevers and chills. Temperature upon arrival to the ED is 38.1. Diagnostic imaging included an ultrasound right upper quadrant which showed gallbladder sludge with no evidence of cholecystitis. Intractable abdominal pain/fever- Gallbladder ultrasound with mild sludge without evidence of cholecystitis. Liver tests are normal. N.p.o. Status post 1 L normal saline bolus in the ED LR at 80 mL/h x 1 L Acetaminophen 1 g IV every 8 hours as needed for mild pain or fever Urine drug screen Full liquid diet advance as tolerated Repeat CBC and chemistry profile as noted General surgery consult as noted Intractable migraine- Pain control as above For magnesium 1.9 Magnesium sulfate 1 g IV Repeat laboratories in a.m. PG Care Time/CCT Total # of Minutes Spent Total Time Spent with Patient: Total time spent is greater than 50% in coordination of care (as documented) at patient's floor/unit and/or counseling patient: Coding Level of Care Code 61800 INT INP/OBS CARE 3/75MIN Diagnoses Intractable right upper quadrant abdominal pain R10.11 Fever R50.9 Migraine G43.909
[2025-03-07] MEDS: PANTOprazole 40 MG/10 ML SYR IV ONE (06:03)
[2025-03-07] MEDS ORDERED: DOCUSATE SODIUM 100 MG CAP PO PRN (06:42)
[2025-03-07] MEDS ORDERED: MoRPHine SULFATE 4 MG/ML 1 ML CARP\\VIAL IV PRN (06:42)
[2025-03-07] MEDS ORDERED: ONDANSETRON INJ 2 MG/ML 2 ML VIAL IV PRN (06:42)
[2025-03-07] MEDS ORDERED: KETOROLAC TROMETHAMINE 15 MG/ML VIAL IV PRN (06:42)
[2025-03-07] MEDS ORDERED: MoRPHine SULFATE 2 MG/ML CARP IV PRN (06:42)
[2025-03-07] MEDS ORDERED: MELATONIN 3 MG TAB PO PRN (06:42)
[2025-03-07] MEDS ORDERED: POLYETHYLENE (MIRALAX) 17 GM PACK PO PRN (06:42)
[2025-03-07] MEDS ORDERED: ACETAMINOPHEN 1,000 MG/100 ML VIAL IV PRN (06:42)
[2025-03-07] MEDS: MAGNESIUM SULFATE / D5W 1 GM/100 ML BAG IV ONE (06:50)
[2025-03-07] MEDS: LACTATED RINGER'S 1,000 ML IV SCH (06:50)
--- NOTE | 2025-03-07 07:24 | Hospitalist Progress Note ---
Date of Service March 07, 2025 Assessment & Plan Admission and Anticipated Discharge Date Admission Date: March 07, 2025 Results & Data Results & Data Vital Signs (Past 12 Hours) Vital Signs Temp Pulse Pulse Resp BP BP Pulse Ox 03/07/25 06:00 54 L 18 111/64 96 03/07/25 04:54 37.1 C 03/07/25 04:18 52 L 18 106/63 94 03/07/25 03:30 37.2 C 03/07/25 03:00 68 15 120/71 95 03/07/25 02:30 80 17 137/82 96 03/07/25 02:00 78 14 138/83 03/07/25 02:00 88 03/07/25 01:52 03/07/25 01:35 38.1 C H 96 H 18 134/89 97 O2 Del Method 03/07/25 06:00 Room Air 03/07/25 04:54 03/07/25 04:18 Room Air 03/07/25 03:30 03/07/25 03:00 03/07/25 02:30 03/07/25 02:00 03/07/25 02:00 03/07/25 01:52 Room Air 03/07/25 01:35 Room Air PG Care Time/CCT Total # of Minutes Spent Total Time Spent with Patient: Total time spent is greater than 50% in coordination of care (as documented) at patient's floor/unit and/or counseling patient: Coding
[2025-03-07 07:27] VITALS: BP 104/70; PULSE 57; RESP 16; TEMP 97.3; O2SAT 95
[2025-03-07] MEDS: POLYETHYLENE (MIRALAX) 17 GM PACK PO SCH (09:50)
[2025-03-07] MEDS: KETOROLAC 30 MG/ML VIAL IV SCH (09:50)
[2025-03-07] MEDS: ACETAMINOPHEN 500 MG TAB PO SCH (09:52)
[2025-03-07] MEDS: ALUMINUM/MAGNESIUM SUSP 30 ML UDC PO ONE (09:52)
[2025-03-07] MEDS: PANTOprazole 40 MG/10 ML SYR IV SCH (09:52)
--- NOTE | 2025-03-07 10:16 | Electrocardiogram Report ---
Test Reason : Blood Pressure : */* mmHG Vent. Rate : 77 BPM Atrial Rate : 77 BPM P-R Int : 166 ms QRS Dur : 88 ms QT Int : 336 ms P-R-T Axes : 24 -3 35 degrees QTcB Int : 380 ms Normal sinus rhythm Normal ECG When compared with ECG of 23-Jul-2024 22:19, No significant change was found Confirmed by Krunal Driscoll ([id number]) on 03/07/2025 10:16:06 AM Referred By: REFERRED SELF Confirmed By: Krunal Driscoll
--- NOTE | 2025-03-07 11:44 | Discharge Summary ---
Discharge Summary Date of Service March 07, 2025 Principal Dx & Hospital Course #1 = Principal Diagnosis (1) Abdominal pain, acute, right upper quadrant: (2) Headache: (3) Eosinophilic esophagitis: Plan In summary this is a 30-year-old male who presented with progressive abdominal pain over 5 days with associated headache admitted for observation The patient's symptoms rapidly improved with interventions provided; there is no evidence of acute hepatobiliary pathology nor significant inflammatory changes of the gallbladder noted on ultrasound. Of note, the patient was never febrile during his hospitalization, though he did have an elevated temperature this is not consistent with a true clinical fever. There are no concerns at this time for a ongoing bacterial infection nor viral pathology. Patient was discharged with resolution of his symptoms; he does have a diagnosis on his medical record of eosinophilic esophagitis of the patient is not certain of this. Severe gastroesophageal reflux disease including potential progression to peptic ulcer disease could present similarly to this, we recommend continued use of their previously prescribed proton pump inhibitor with close follow-up with the PCP as the patient is not established with a provider at this time. Admission HPI Per Admitting Provider Patient is a 30-year-old male with past medical history of GERD, and reported gallbladder issues. Patient presented to the ED due to abdominal pain worse with eating since Tuesday, constant migraine since Tuesday, poor appetite, fever, and chills. Patient with temperature of 38.1 and tachycardia on arrival to ED, improved with IVF and Tylenol. Laboratories unremarkable. Diagnostic imaging revealed gallbladder sludge on ultrasound however no evidence of cholecystitis. Patient is being admitted for intractable abdominal pain and intractable headache. Patient seen at bedside with his family present. He was sleeping frequently on exam however responded to verbal stimuli. He stated his abdominal pain started on Tuesday gets worse with eating and drinking, occasionally there at rest however most often associated with meals. It feels sharp and burning. Pain currently 2/10 at bedside after Tylenol 1G IV Dilaudid 1 Mg IV in the ED. He does have a history of gallbladder issues and stated he followed with [facility] and was to have surgery in July however missed his appointment. 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 He denies any nausea or vomiting. Patient also reports a constant migraine since Tuesday which he does have a history of migraines. Typically relieved with food, Tylenol, and sleeping. All of these measures did not control his migraine at home. He denies any blurred vision, double vision, tinnitus, dizziness, lightheadedness, chest pain, shortness of breath, rhinorrhea, sore throat, dysuria, hematuria, diarrhea. He denies nicotine, alcohol, or illicit drug use. His only medication is omeprazole. Note that patient follows with [facility] however being seen by [facility] team due to insurance. Discharge Exam General: Adult male in no acute distress Vital Signs: Reviewed HEENT: Mucous membranes moist Pulmonary: Symmetric chest wall excursion without restriction; clear to auscultation bilaterally Cardiovascular: Regular rate and rhythm without murmur, rub, or gallop; S1 and S2 normal Gastrointestinal: Soft, nontender; normal bowel sounds throughout the entire abdomen; no notable hepatomegaly nor splenomegaly Discharge Plan Discharge Items Patient Disposition: Home - Self-Care Reason For Visit: INTRACTABLE ABD PAIN, MIGRAINE Discharge Diagnosis: Biliary colic // GERD Condition on Discharge: Fair Activity: Resume your previous activity Non-emergency contact: Primary Care Provider Call non-emergency contact if: you have any medication questions and your symptoms worsen Follow-up/Referrals: Fredi Dobson MD [Physician] - (Previously established, biliary colic) PCP,NO [Primary Care Provider] - Diet: Low Fat Fluids: 2000ml (8 cups) Addtl Attending Provider Instructions: You were admitted to [facility] for abdominal pain that was persistent and progressive beginning on 03/03. This is most consistent with a combination of biliary colic in addition to gastroesophageal reflux disease given the resolution of your symptoms with taking antacids. We recommend avoiding high fat content foods in addition to precipitating foods of your symptoms of reflux including potentially alcohol, spicy food, citrus fruits, sour foods. You have been previously established with [facility] general surgery, a their information has been included in your discharge. Regarding recurrent episodes of pain we recommend taking Tylenol 1000 mg p.o. as needed, not to exceed 4 g in a 24-hour period. Additionally, in combination with the calcium carbonate tablets that you were using prior to hospitalization, using a liquid form of acid suppression such as Maalox, or a generic equivalent. Of note, though documented repeatedly on the medical chart, you were afebrile throughout your entire hospitalization. There is no evidence of an acute bacterial or viral infectious process. Thank you for choosing [facility] as your healthcare provider. Pending Studies at Discharge: No Stand-Alone Forms: My [facility] Medications and DC Order Prescriptions: Continued omeprazole 40 mg capsule,delayed release(DR/EC) 40 mg PO DAILY Discharge Orders: Discharge Order (Routine); Ordered 03/07/25 Ordered By: Darryl Fowler/Other Patient Handouts: Abdominal Pain Admission Data Admit Date/Time: 03/07/25 05:32 Attending Provider: Darryl Francis Admit Provider: Samuel Dunlap Primary Care Provider: PCP,NO Other Providers: Samuel Dunlap Other Interventions: Discharge Summary Assessment (RN) Last Done: 03/07/25 10:01 Hospital Stay Data Consultations 03/07/25 05:05 ED Decision to Admit Stat Diagnostic Imagining Performed 03/07/25 02:16 US gallbladder Stat Pending Results Patient Have Any Pending Studies at Discharge: No Discharge Instructions Given to Patient (Per Discharging Provider) You were admitted to [facility] for abdominal pain that was persistent and progressive beginning on 03/03. This is most consistent with a combination of biliary colic in addition to gastroesophageal reflux disease given the resolution of your symptoms with taking antacids. We recommend avoiding high fat content foods in addition to precipitating foods of your symptoms of reflux including potentially alcohol, spicy food, citrus fruits, sour foods. You have been previously established with [facility] general surgery, a their information has been included in your discharge. Regarding recurrent episodes of pain we recommend taking Tylenol 1000 mg p.o. as needed, not to exceed 4 g in a 24-hour period. Additionally, in combination with the calcium carbonate tablets that you were using prior to hospitalization, using a liquid form of acid suppression such as Maalox, or a generic equivalent. Of note, though documented repeatedly on the medical chart, you were afebrile throughout your entire hospitalization. There is no evidence of an acute bacterial or viral infectious process. Thank you for choosing [facility] as your healthcare provider. Total Time Total Time Spent Total Time Spent (In Minutes): I personally spent 75 minutes in the coordination of the patient's discharge including bedside counseling, physical exam, medication reconciliation, and reviewed the patient's previous medical records to inform clinical decision making at this time Coding Level of Care Code INP/OBS EV SAME DAY LV 2,70MIN Diagnoses Abdominal pain, acute, right upper quadrant R10.11 Headache R51.9 Eosinophilic esophagitis K20.0
== END 2025-03-07 10:50 | disposition home or self-care (01) ==
LOC: SUATTDRO → 3E 01:27 → ED 01:27 → SUATTDRO 05:32 → 3E 06:18